=== PATIENT | male | born 1970 | race Caucasian/White ===

== ENCOUNTER 2019-01-06 09:13 | Outpatient (CLI) | payer MEDICAID, SELFPAY ==
[2019-01-06 10:24] LABS: Anion Gap 8.6 mmol/L (3-11); BUN 15 mg/dL (7-18); CO2 29.4 mmol/L (21.0-32.0); CREATININE 0.69 mg/dL (0.70-1.30); Calcium 8.8 mg/dL (8.5-10.1); Calculated LDL 91 mg/dL; Chloride 103 mmol/L (98-107); Cholesterol 154 mg/dL (50-200); Glucose 91 mg/dL (70-100); HDL Cholesterol 34 mg/dL (40-60); Potassium 4.5 mmol/L (3.5-5.1); Sodium 141 mmol/L (136-145); Triglyceride 145 mg/dL (30-150)
== END 2019-01-06 09:33 ==
PROVIDERS: PCP Nurse Practitioner Family; Visit Provider Nurse Practitioner Family
DX: E11.9 Type 2 diabetes mellitus without complications (principal); Z00.00 Encounter for general adult medical examination without abnormal findings
CPT/HCPCS: 36415; 80048; 80061

== ENCOUNTER 2019-02-04 17:00 | Observation (INO) | payer MEDICAID, SELFPAY ==
[2019-02-04] VITALS (133 sets, daily range): BP systolic 102–190; BP diastolic 55–153; PULSE 90–204; RESP 7–44; TEMP 36.3–37.2; O2SAT 91–99
--- NOTE | 2019-02-04 17:36 | W.ED.GENAD ---
Discharge Plan Disposition Patient Disposition: [facility] INPATIENT Condition: Critical Discharge Details Chief Complaint: Palpitatns Clinical Impression: Atrial fibrillation with RVR, Multiple thyroid nodules Primary Care Provider: Rayne Worrell ED Provider: Russell Hernandez Home Meds and New Rx's Prescriptions: No Action metformin 500 MG tablet 500 mg PO DAILY RF: 0 glipizide 5 mg Tablet 5 mg PO DAILY RF: 0 Medical Decision Making 17:40 --48-year-old male here with chief complaint of palpitations that started approximately 1 hour prior to arrival. ECG reviewed and interpreted by me: Atrial fibrillation 132 bpm, normal axis, no STEMI. Patient has no known history of atrial fibrillation. Patient denies chest pain or shortness of breath. Patient saturating well in no respiratory distress. Plan to proceed to rate control with Cardizem IV. I will check TSH and electrolytes. 18:30 -- Patient did not respond to diltiazem 15mg IV. Will repeat push and administer 20mg IV. 19:14 --patient did respond to second dose of diltiazem and heart rate improved to 110s. Plan to start diltiazem infusion. Chest x-ray was interpreted by radiologist prominence of the central pulmonary vasculature. Consider pulmonary embolism. Plan to proceed to CT of the chest. Labs reviewed and nondiagnostic. 20:08 --CT of the chest interpreted by radiology: No evidence for pulmonary embolism. 0.3 cm nodule right lateral lung. Multiple thyroid nodules and calcifications. Recommend ultrasound for further evaluation. Patient now on Cardizem infusion. I called and spoke with Dr. Duran, hospitalist, who will admit the patient. Care transition to Dr. Duran. HPI General Mode of arrival: ambulatory. Date/Time Provider Initiated Documentation: 02/04/19 17:07. Limitations to Documentation: no limitations. Information obtained by: patient. HPI Narrative: 48-year-old male with history of nonindependent diabetes, morbid obesity, here with chief complaint of palpitations. Patient notes palpitations started 1 hour ago. Palpitations started while he was sitting watching TV. Prior to onset he was feeling well. After onset he noted to feel little bit dizzy when he was up and walking around. He has no associated chest pain. Related Data Home Medications Medication Instructions Recorded Confirmed metformin 500 mg PO DAILY 06/19/16 02/04/19 glipizide 5 mg PO DAILY 02/04/19 02/04/19 Allergies Allergy/AdvReac Type Severity Reaction Status Date / Time No Known Allergies Allergy Unverified 02/04/19 17:15 General Stated Complaint: Palpitatns VARGHESE: 2 Review of Systems All systems reviewed & are unremarkable except as noted in HPI and below Constitutional Constitutional: Denies fever(s) ENT Ears, Nose, Mouth, and Throat: Reports dizziness Cardiovascular Cardiovascular: Reports palpitations and Denies dyspnea Respiratory Respiratory: Denies dyspnea Neurologic Neurologic: Reports dizziness Endocrine Endocrine: Reports palpitations [facility] Social History Smoking/Tobacco Use Status: Never Alcohol Intake: never Drug use: Never Substance use type: does not use Do you feel safe at home: Yes Do you feel safe in your relationship?: Yes Exam Const General: cooperative and no acute distress HENMT Mouth: moist mucous membranes Eyes Conjunctivae: normal conjunctivae Sclera: normal sclerae Neck Neck: trachea midline and supple Resp Auscultation: clear to auscultation bilaterally, no rales, no rhonchi and no wheezes Cardio Jugular venous pressure: no JVD Rate: tachycardic Rhythm: abnormal rhythm irregularly irregular GI Palpation: soft, not firm, no guarding, no masses, not rigid and nontender Skin General skin exam: no rashes or lesions noted Neuro General: alert, awake, oriented x3 and tone normal Extrem General: no edema Psych Appearance: grossly normal Mental Status: mental status grossly normal Speech and Movement: speech and movement normal Course Vital Signs Vital signs: Vital Signs Pulse 88 02/04/19 17:08 Respiratory Rate 31 H 02/04/19 17:08 Blood Pressure 148/99 H 02/04/19 17:08 Pulse Oximetry 95 02/04/19 17:08 Temperature 36.3 C L 02/04/19 17:14 Temperature Source Temporal Artery Scan 02/04/19 17:11 Pulse 70 02/04/19 17:31 Respiratory Rate 28 H 02/04/19 17:31 Respiratory Effort Non-Labored 02/04/19 17:11 Blood Pressure 169/88 H 02/04/19 17:31 Blood Pressure Position Sitting 02/04/19 17:11 Pulse Oximetry 92 L 02/04/19 17:31 Oxygen Delivery Method Room Air 02/04/19 17:11 Oxygen Flow Rate 0 02/04/19 17:11 Pain Level 0 02/04/19 17:18 Critical Care Time Critical Care Time Critical Care Time: Yes Total Critical Care Time: 45 Attestation: I spent greater than 45 minutes addressing this patient's immediate life threats
--- NOTE | 2019-02-04 17:45 | DI.RAD_ITS ---
EXAM: XR PORTABLE CHEST AP INDICATION: new afib, palpitations. COMPARISON: CHEST 2 VIEWS PA,LAT from 04/17/2012 TECHNIQUE: 2D digital imaging was performed. FINDINGS: The heart size is within normal limits. There is tortuosity of the thoracic aorta. The lungs appear clear. No effusions or pneumothoraces are identified. The bones appear intact. IMPRESSION: No acute pulmonary process.
[2019-02-04 17:47] LABS: Abs Immature Grans 0.03 k/cumm (0.0-0.09); Absolute Basophil Count 0.07 k/cumm (0.0-0.2); Absolute Eosinophil Count 0.26 k/cumm (0.0-0.7); Absolute Lymphocyte Count 2.95 k/cumm (1.2-3.4); Absolute Monocyte Count 0.91 k/cumm (0.11-0.7); Basophils % 0.7; Eosinophils % 2.6; HCT 50.9 % (40.0-50.0); Immature Grans % 0.3; Lymphocytes % 29.7; Mean Corp. HGB Concentration 33.4 g/dL (32.0-36.0); Mean Corpuscular Hemoglobin 28.9 pg (27.0-33.0); Mean Corpuscular Volume 86.6 fL (80-95); Mean Platelet Volume 10.3 fL (8.0-11.0); Monocytes % 9.2; Neutrophils % 57.5; Platelet Count 297 x1000/uL (130-400); RBC 5.88 m/cumm (4.50-6.00); RBC Distribution Width 14.3 % (11.8-14.1); White Blood Cell Count 9.92 k/cumm (4.4-10.8)
[2019-02-04] MEDS: dilTIAZem 25 MG/5 ML VIAL 15 MG IVP (17:56)
[2019-02-04] MEDS: Normal Saline 1,000 ML 150 ML IV (17:57)
[2019-02-04 18:08] LABS: ALT 23 U/L (16-63); AST 15 U/L (15-37); Albumin 3.4 g/dL (3.4-5.0); Alkaline Phosphatase 84 U/L (46-116); Anion Gap 8.7 mmol/L (3-11); BUN 12 mg/dL (7-18); Bilirubin, Total 0.3 mg/dL (0.2-1.0); CO2 27.3 mmol/L (21.0-32.0); CREATININE 0.69 mg/dL (0.70-1.30); Calcium 9.1 mg/dL (8.5-10.1); Chloride 103 mmol/L (98-107); Glucose 125 mg/dL (70-100); Sodium 139 mmol/L (136-145); TSH (W/Ref FT4) 2.26 uIU/mL (0.36-3.74); Total Protein 8.5 g/dL (6.4-8.2)
[2019-02-04 18:10] LABS: Troponin I < 0.05 ng/mL (0.00-0.06)
[2019-02-04] MEDS: dilTIAZem 25 MG/5 ML VIAL 20 MG IVP (18:43)
--- NOTE | 2019-02-04 18:43 | DI.VRAD_ITS ---
PROCEDURE INFORMATION: Exam: XR Chest, 1 View Exam date and time: 02/04/2019 6:36 PM Clinical history: 48 years old, male; Other: New afib, palpitations TECHNIQUE: Imaging protocol: XR of the chest Views: 1 view. COMPARISON: CR CHEST 2 VIEWS PA,LAT 17/04/2012 16:13 FINDINGS: Lungs: There is slight prominence of the central pulmonary vessels. No consolidation. Pleural space: Unremarkable. No pleural effusion. No pneumothorax. Heart/Mediastinum: Heart and mediastinum are unchanged. Bones/joints: EKG wires overlie the chest. There is degenerative scoliotic changes of the thoracic spine. IMPRESSION: Prominence of the central pulmonary vasculature. Dictated and Authenticated by: Roma Choi MD. Ordering:JOHANN Wells MD
[2019-02-04] MEDS: Normal Saline 1,000 ML 1000 ML IV (18:44)
[2019-02-04] MEDS: Omnipaque 350 MG/ML 100 ML BTL IJ (19:25)
[2019-02-04] MEDS: Omnipaque 350 MG/ML 50 ML BTL IJ (19:26)
--- NOTE | 2019-02-04 19:29 | DI.CT_ITS ---
EXAM: CT CHEST PE CTA CLINICAL HISTORY: tachy, new afib, prominence of central pulm vascul TECHNIQUE: Axial CT angiography was performed with multi-slice acquisition and multi-planar and/or 3 D reconstructions. COMPARISON: XR PORTABLE CHEST AP from 02/04/2019 FINDINGS: There is no evidence of a pulmonary embolus. The thoracic aorta is intact. No evidence of an aneurysm or dissection is present. Heart size is within normal limits. No significant pericardial effusion is present. No evidence of r ight ventricular dysfunction is present. No significant thoracic adenopathy, pleural effusion or pneumothorax is present. No focal consolidating infiltrates are present. There is a 3 mm nodule in the right lateral lung. The tracheobronchial tree is unremarkable. There are thyroid nodules present. Calcifications are seen in the left lobe of the thyroid gland. A nonemergent thyroid ultrasound should be considered. There are degenerative changes seen in the thoracic spine. There is exaggeration of the thoracic kyp hosis. There is a right convex thoracic scoliosis. IMPRESSION: 1. No evidence of a pulmonary embolus, thoracic aortic dissection or aneurysm 2. 3 mm right pulmonary nodule. Follow-up is recommended. Correlation with the patient's past medic al history including smoking is recommended. 6-12 month follow-up CT scan of the chest is recommende d for re-evaluation. 3. Thyroid nodules. Nonemergent thyroid ultrasound should be considered.
[2019-02-04] MEDS: dilTIAZem 125 MG in Normal Saline 100 ML IV (19:57)
--- NOTE | 2019-02-04 19:58 | DI.VRAD_ITS ---
PROCEDURE INFORMATION: Exam: CT Angiography Chest With Contrast Exam date and time: 02/04/2019 7:13 PM Clinical history: 48 years old, male; Other: Tachy, new afib, prominence of central pulm vascul TECHNIQUE: Imaging protocol: Computed tomographic angiography of the chest with intravenous contrast. 3D rendering: MIP reconstructed images were created and reviewed. Radiation optimization: All CT scans at this facility use at least one of these dose optimization techniques: automated exposure control; mA and/or kV adjustment per patient size (includes targeted exams where dose is matched to clinical indication); or iterative reconstruction. Contrast material: [id number]; Contrast volume: 125 ml; Contrast route: IV 20G RAC; COMPARISON: XR PORTABLE CHEST AP 11/07/2018 18:25 FINDINGS: Pulmonary arteries: No evidence for pulmonary embolus. Aorta: Unremarkable. No aortic aneurysm. No aortic dissection. Thyroid: Bilateral thyroid nodules. Left thyroid calcification. Recommend ultrasound for further evaluation. Lungs: No focal consolidation. 0.3 cm right lateral lung nodule series 7 image 67. Pleural space: Unremarkable. No pneumothorax. No pleural effusion. Heart: Cardiomegaly. Coronary artery disease. Lymph nodes: Unremarkable. No enlarged lymph nodes. Bones/joints: Multilevel degenerative changes of the thoracic spine. Kyphosis and scoliosis of the thoracic spine. Soft tissues: Unremarkable. IMPRESSION: 1. No evidence for pulmonary embolus. 2. 0.3 cm nodule right lateral lung series 7 image 67. 3. Multiple thyroid nodules and calcifications. Recommend ultrasound for further evaluation. Dictated and Authenticated by: Roma Choi MD. Ordering:JOHANN Wells MD
--- NOTE | 2019-02-04 20:05 | NUR.NOTE ---
Nursing NoteCare assumed of patient, report recieved, Dr. Duran here to evaluate and write further orders for admission. Pt states comfortable at this time. No needs, awaiting further orders.
[2019-02-04 20:35] LABS: Troponin I < 0.05 ng/mL (0.00-0.06)
--- NOTE | 2019-02-04 20:37 | HPE_ITS ---
Date of service: 02/04/19 Time of Service: 20:37 Assessment and Plan Assessment and plan (1) Atrial fibrillation: Status: Chronic Assessment and plan: A-fib, new onset. No precipitant apparent. Tolerating so no need for emergent attempt at conversion. Rate not responding at present to cardizem, will try Verapamil and then beta cory if needed. If fails to revert overnight would proceed with cardioversion, either Ibutilide or electrical.Will provisionally begin anticoagulation with Eliquis, unclear if will need termite control representative. Will also check tox screen and obtain ECHO. History of Present Illness History of Present Illness Chief Complaint: palpitations Narrative: 48 male comes in with sense of palpitation tis evening. Rapid AF noted; work up shows no electrolyte abnormalities, normal TSH. Denies EtOH or street drrug use. Rate has been as high as 200 when acttive, otherwise approximately 14-15. has rreceived Cardizem 35 mg IV in divided doses with temporary decrease to 110's, now on 10 mg qtt with rate 130s-140s. No CP, SOB, says the intensity of the palpitation is less but still present. Review of Systems All systems reviewed & are unremarkable except as noted in HPI and below PFSH Social History Smoking/Tobacco Use Status: Never Alcohol Intake: never Drug use: Never Substance use type: does not use Do you feel safe at home: Yes Do you feel safe in your relationship?: Yes Meds Home Medications and Allergies Home Medications Medication Instructions Recorded Confirmed Type metformin 500 mg PO DAILY 06/19/16 02/04/19 History glipizide 5 mg PO DAILY 02/04/19 02/04/19 History Allergies Allergy/AdvReac Type Severity Reaction Status Date / Time No Known Allergies Allergy Unverified 02/04/19 17:15 Exam Narrative Exam Narrative: 151/83, 143, 18, 37.2. HEENT AT/NC; neck supple; lungs clear; heart tachy irr/irr; abdomen soft NT; extremities trace edema, pulse 2+/= Results Labs Result diagrams: 02/04/19 17:11 02/04/19 17:11 Labs: Laboratory Results - last 24 hr 02/04/19 02/04/19 02/04/19 17:11 17:11 20:13 WBC 9.92 RBC 5.88 Hgb 17.0 Hct 50.9 H MCV 86.6 MCH 28.9 MCHC 33.4 RDW 14.3 H Plt Count 297 MPV 10.3 Immature Gran % 0.3 Neutrophils % 57.5 Lymphocytes % 29.7 Monocytes % 9.2 Eosinophils % 2.6 Basophils % 0.7 Absolute Neutrophils 5.70 Absolute Lymphocytes 2.95 Absolute Monocytes 0.91 H Absolute Eosinophils 0.26 Absolute Basophils 0.07 Sodium 139 Potassium 4.0 Chloride 103 Carbon Dioxide 27.3 Anion Gap 8.7 BUN 12 Creatinine 0.69 L Estimated GFR/1.73 m2 >= 60.00 Glucose 125 H Calcium 9.1 Magnesium 2.0 Total Bilirubin 0.3 AST 15 ALT 23 Alkaline Phosphatase 84 Troponin I < 0.05 < 0.05 Total Protein 8.5 H Albumin 3.4 TSH 2.26 Last Vital Signs Temp 37.2 C 02/04/19 20:05 Pulse 143 H 02/04/19 20:05 Resp 18 02/04/19 20:05 BP 151/83 H 02/04/19 20:05 Pulse Ox 96 02/04/19 20:05
[2019-02-04] MEDS: Verapamil 5 MG/2 ML VIAL IVP (20:40)
[2019-02-04] MEDS: Verapamil 5 MG/2 ML VIAL (21:00)
[2019-02-04 22:05] LABS: *AMPHETAMINES SCREEN URINE Negative (Negative); *BARBITURATES SCREEN URINE Negative (Negative); *BENZODIAZEPINES SCREEN URINE Negative (Negative); Cannabinoids THC Negative (Negative); Cocaine Screen,Urine Negative (Negative); METHADONE URINE SCREEN Negative (Negative); OPIATES URINE SCREEN Negative (Negative)
[2019-02-04 22:20] LABS: Tricyclic Antidepressants Negative (Negative)
[2019-02-04] MEDS: Verapamil 80 MG TAB PO (22:22)
[2019-02-05] VITALS (12 sets, daily range): BP systolic 122–151; BP diastolic 63–79; PULSE 64–123; RESP 18–29; TEMP 36.4–36.9; O2SAT 92–95
[2019-02-05] MEDS: Verapamil 80 MG TAB PO ×3 (06:40→21:56)
[2019-02-05] MEDS: metFORMIN 500 MG TAB PO (08:12)
[2019-02-05] MEDS: Apixaban 5 MG TAB PO ×2 (08:13→19:16)
[2019-02-05] MEDS: glipiZIDE 5 MG TAB PO (08:13)
--- NOTE | 2019-02-05 10:02 | PHARADMIT ---
Admission Pharmacy Clinical Review AATRIAL FIBRILLATION Code Status Full Code Current Weight Wgt-174.2 kg Renally Cleared and Narrow Therapeutic Index Meds CrCl~ 87 mL/min Meds-OK QTc Value / Action Taken QTc-433 NA BP Control, Fever BP- 124/80 Tmax-36.5C Electrolytes reviewed Na- 139 K+4.3 Mag-2.0 DVT Prophylaxis Eliquis Opiate Usage / Scheduled Bowel Regimen Ordered No No Plt/SCr for Heparin / Enoxaparin Plts-297 SCr-0.69 INR for Warfarin NA H/H stable, WBC/Bands H&H- 17.0/50.9 WBC-9.92 Antibiotic appropriateness NONE Cultures and Sensitivities NONE Surgical ABX d/c within 24 hr NA DM control / Insulin Dosing BG-125 Glipizide, Metformin Heart Failure (Check EF%) (ELVIRA's, B-Block, Diuretics) Verapamil, Diltiazem drip IV to PO Switch No Home Meds Reviewed Yes Home Meds Not Ordered Percocet Comments
[2019-02-05] MEDS: dilTIAZem 125 MG in Normal Saline 100 ML IV (10:25)
[2019-02-05 12:06] LABS: Anion Gap 9.7 mmol/L (3-11); BUN 13 mg/dL (7-18); CO2 24.3 mmol/L (21.0-32.0); CREATININE 0.65 mg/dL (0.70-1.30); Calcium 9.2 mg/dL (8.5-10.1); Chloride 106 mmol/L (98-107); Glucose 97 mg/dL (70-100); Sodium 140 mmol/L (136-145); Troponin I < 0.05 ng/mL (0.00-0.06)
--- NOTE | 2019-02-05 13:16 | INITIAL_ITS ---
Care Management Initial Assess REASON FOR HOSPITALIZATION:: A-FIB PAST MEDICAL HISTORY/PAST SURGICAL HISTORY:: Medical: Diabetes, Obesity. Surgical: No history provided PREVIOUS FUNCTIONAL STATUS/SOCIAL/FAMILY SUPPORTS:: Lives with his parents at their home in [facility]. Gilbert does not currently have a job. Spends his day doing chores around the house and watching TV. Family, including his sister, are supportive. CURRENT FUNCTIONAL STATUS:: Gilbert is lying in bed watching TV. Alert and talkative. Shared that his heart went back to normal but the doctor needs to check a few other tests so he will be her a bit longer than he had hoped. ADVANCE DIRECTIVES:: None on file Has patient been provided with information about the portal?: Yes Did the patient sign up for the portal?: No CODE STATUS:: Full Code INSURANCE COVERAGE / FINANCIAL ISSUES:: [place] Medicaid CURRENT HOME/COMMUNITY SERVICES/EQUIPMENT:: None at this time PRIMARY CARE PHYSICIAN:: [facility] - Rayne Worrell NP POTENTIAL DISCHARGE NEEDS:: None identified at this time PATIENT/FAMILY EDUCATION NEEDS:: Discharge instructions ANTICIPATED BARRIERS TO DISCHARGE:: None identified TRANSPORTATION:: Family PLAN:: Gilbert will retrn home when medically cleared for discharge. No servces needed at this time. Family will transport by car.
--- NOTE | 2019-02-05 14:00 | PGE_ITS ---
Date of Service Date of service: 02/05/19 Time of Service: 14:00 Assessment and Plan Assessment and plan (1) Atrial fibrillation: Status: Chronic Assessment and plan: Converted to sinus rhythm. TSH, electrolytes, tox screen all checked and negative. Afib may be on the basis of untreated and undiagnosed underlying BRENNA. - Recommend outpatient Sleep Study, treatment if BRENNA confirmed. - Continue short-acting Verapamil, discontinue Dilt gtt. - [id number] score of 1 (DM) at minimum, with unknown ECHO results. Patient was initiated on AC with Apixaban. - Continue to monitor on telemetry. (2) Abnormal EKG: Status: Acute Assessment and plan: Evidence of TWave inversions on ECG following conversion to sinus rhythm - Serial Troponins negative and patient remains asymptomatic, but ECG findings are new compared to prior tracing from 2013 as well as initial tracing from time of admission. - Discussed with cardiology at [facility] regarding need for inpatient stress testing vs. outpatient work-up. Sales Incentive Analyst recommended outpatient work-up, with ECG findings likely on the basis of repolarization abnormalities following Afib - also without signs of PE on CTA of the chest. Plan will be to continue to trend cardiac biomarkers, monitor on telemetry, and repeat ECG in the morning, and if resolved findings or continued absence of troponin spill plan for ECHO and stress testing as outpatient. (3) Diabetes mellitus: Status: Chronic Assessment and plan: Continue daily Sulfonylurea, but hold Metformin as inpatient, especially given contrast study at time of admission - will monitor renal function carefully. Monitor blood sugar. (4) DVT prophylaxis: Status: Acute Assessment and plan: On active anticoagulation as above. Initiate PPI for GI Prophylaxis as well. Subjective Subjective Interval history since last seen: 48 year old man with a prior history of DM and obesity, admitted from [facility] Emergency Department with a diagnosis of new onset AFib. Mr. Ryan has a past Medical History significant for Obesity and Non-insulin dependent DM. He also very likely suffers from underlying BRENNA, not officially diagnosed. The patient presented to the ED with complaints of palpitations, found to be in Afib with RVR. Initial work-up was fairly unremarkable with an essentially normal CBC, CMP, Magnesium, Urine Tox screen, and TSH. His initial ECG showed Afib but without ischemic changes, and his troponin was negative. CXR showed slight prominence of the central pulmonary vessels, with CTA of the chest showing no evidence of PE. Incidentally noted were a 0.3 cm nodule of the right lung, as well as multiple thyroid nodules. He was initiated on a Cardizem drip and referred for admission. Shortly after admission Mr. Ryan converted to sinus rhythm. His serial Troponins remained negative. However, his ECG following conversion showed T-Wave Inversions across II, III, and AVF which were present on repeat check. This is a new finding in comparison to both his admission tracing as well as ECG from 2013. He remains asymptomatic. No other overnight events reported. Exam Narrative Exam Narrative: General: Patient appears comfortable, AAOX3, NAD Neck: Supple CV: Regular, nontachycardic, S1S2, No rubs or murmurs. Distant heart sounds due to body habitus. Pulmonary: Clear to auscultation bilaterally, no crackles, wheezing, or rhonchi Abdomen: + Bowel Sounds, soft, nontender, nondistended, obese contour. Vascular: Mild non-pitting lower extremity edema Psych: Normal mood and affect. Objective Objective Clinical Data: Abnormal lab results 02/04/19 02/04/19 02/05/19 Range/Units 17:11 17:11 11:15 Hct 50.9 H (40.0-50.0) % RDW 14.3 H (11.8-14.1) % Absolute Monocytes 0.91 H (0.11-0.7) k/cumm Creatinine 0.69 L 0.65 L (0.70-1.30) mg/dL Glucose 125 H (70-100) mg/dL Total Protein 8.5 H (6.4-8.2) g/dL Vital Signs Temperature 36.4 C L 02/05/19 08:00 Temperature Source Temporal Artery Scan 02/05/19 08:00 Pulse 64 02/05/19 08:04 Pulse 67 02/05/19 08:04 Respiratory Rate 18 02/05/19 08:04 Respiratory Effort Non-Labored 02/05/19 08:00 Respiratory Depth Normal 02/05/19 08:00 Respiratory Pattern Normal 02/05/19 08:00 Blood Pressure 122/78 02/05/19 08:04 Blood Pressure Mean 89 02/05/19 08:04 Blood Pressure Position Supine 02/05/19 08:00 Pulse Oximetry 92 L 02/05/19 08:04 Oxygen Delivery Method Room Air 02/05/19 08:00 Oxygen Flow Rate 0 02/05/19 08:00 Pain Level 0 02/05/19 08:00 Comment 02/04/19 18:26 Intake & Output 02/04/19 02/05/19 02/05/19 23:59 11:59 23:59 Intake Total 1242.583 / 1242.583 622.417 / 622.417 Balance 1242.583 / 1242.583 622.417 / 622.417 Weight 173.8 kg 174.2 kg Intake: IV 1002.583 / 1002.583 122.417 / 122.417 Oral 240 / 240 500 / 500 Laboratory Results WBC 9.92 k/cumm (4.4-10.8) 02/04/19 17:11 RBC 5.88 m/cumm (4.50-6.00) 02/04/19 17:11 Hgb 17.0 g/dL (13.5-17.5) 02/04/19 17:11 Hct 50.9 % (40.0-50.0) H 02/04/19 17:11 MCV 86.6 fL (80-95) 02/04/19 17:11 MCH 28.9 pg (27.0-33.0) 02/04/19 17:11 MCHC 33.4 g/dL (32.0-36.0) 02/04/19 17:11 RDW 14.3 % (11.8-14.1) H 02/04/19 17:11 Plt Count 297 x1000/uL (130-400) 02/04/19 17:11 MPV 10.3 fL (8.0-11.0) 02/04/19 17:11 Immature Gran % 0.3 02/04/19 17:11 Neutrophils % 57.5 02/04/19 17:11 Lymphocytes % 29.7 02/04/19 17:11 Monocytes % 9.2 02/04/19 17:11 Eosinophils % 2.6 02/04/19 17:11 Basophils % 0.7 02/04/19 17:11 Absolute Neutrophils 5.70 k/cumm (1.2-6.7) 02/04/19 17:11 Absolute Lymphocytes 2.95 k/cumm (1.2-3.4) 02/04/19 17:11 Absolute Monocytes 0.91 k/cumm (0.11-0.7) H 02/04/19 17:11 Absolute Eosinophils 0.26 k/cumm (0.0-0.7) 02/04/19 17:11 Absolute Basophils 0.07 k/cumm (0.0-0.2) 02/04/19 17:11 Sodium 140 mmol/L (136-145) 02/05/19 11:15 Potassium 4.0 mmol/L (3.5-5.1) 02/05/19 11:15 Chloride 106 mmol/L (98-107) 02/05/19 11:15 Carbon Dioxide 24.3 mmol/L (21.0-32.0) 02/05/19 11:15 Anion Gap 9.7 mmol/L (3-11) 02/05/19 11:15 BUN 13 mg/dL (7-18) 02/05/19 11:15 Creatinine 0.65 mg/dL (0.70-1.30) L 02/05/19 11:15 Estimated GFR/1.73 m2 >= 60.00 (mL/min/1.73m2) 02/05/19 11:15 Glucose 97 mg/dL (70-100) 02/05/19 11:15 Calcium 9.2 mg/dL (8.5-10.1) 02/05/19 11:15 Magnesium 2.0 mg/dL (1.8-2.4) 02/05/19 11:15 Total Bilirubin 0.3 mg/dL (0.2-1.0) 02/04/19 17:11 AST 15 U/L (15-37) 02/04/19 17:11 ALT 23 U/L (16-63) 02/04/19 17:11 Alkaline Phosphatase 84 U/L (46-116) 02/04/19 17:11 Troponin I < 0.05 ng/mL (0.00-0.06) 02/05/19 11:15 Total Protein 8.5 g/dL (6.4-8.2) H 02/04/19 17:11 Albumin 3.4 g/dL (3.4-5.0) 02/04/19 17:11 TSH 2.26 uIU/mL (0.36-3.74) 02/04/19 17:11 Urine Opiates Screen Negative (Negative) 02/04/19 21:36 Urine Methadone Screen Negative (Negative) 02/04/19 21:36 Ur Barbiturates Screen Negative (Negative) 02/04/19 21:36 Ur Tricyclics Screen Negative (Negative) 02/04/19 21:36 Ur Amphetamines Screen Negative (Negative) 02/04/19 21:36 U Benzodiazepines Scrn Negative (Negative) 02/04/19 21:36 Urine Cocaine Screen Negative (Negative) 02/04/19 21:36 Ur THC Screen Negative (Negative) 02/04/19 21:36
[2019-02-05 15:33] LABS: Troponin I < 0.05 ng/mL (0.00-0.06)
--- NOTE | 2019-02-05 17:00 | NUR.NOTE ---
Nursing Note: Pt to MS floor from ICU at 1502. Report received from MARKETING COMMUNICATIONS COORDINATOR Argelia and pt transported via wheelchair to room. Pt able to stand and pivot from wheelchair to bed. VSS, A&Ox3. Parents at bedside. Pt oriented to MS floor, call fairchild, TV, etc. Call fairchild within reach. RN will continue to monitor.
[2019-02-05] MEDS: Nystatin POWDER 15 GM JAR TP (21:56)
[2019-02-06 00:15] VITALS: BP 126/66; PULSE 80; RESP 22; TEMP 36.4; O2SAT 96
[2019-02-06 00:31] VITALS: PULSE 73
[2019-02-06] MEDS: Verapamil 80 MG TAB PO ×2 (05:56→13:26)
[2019-02-06 07:13] VITALS: PULSE 80
[2019-02-06 07:37] LABS: Abs Immature Grans 0.02 k/cumm (0.0-0.09); Absolute Basophil Count 0.06 k/cumm (0.0-0.2); Absolute Eosinophil Count 0.13 k/cumm (0.0-0.7); Absolute Lymphocyte Count 2.32 k/cumm (1.2-3.4); Absolute Monocyte Count 0.94 k/cumm (0.11-0.7); Absolute Neutrophil Count 6.24 k/cumm (1.2-6.7); Basophils % 0.6; Eosinophils % 1.3; HCT 47.8 % (40.0-50.0); HGB 15.8 g/dL (13.5-17.5); Immature Grans % 0.2; Lymphocytes % 23.9; Mean Corp. HGB Concentration 33.1 g/dL (32.0-36.0); Mean Corpuscular Hemoglobin 28.9 pg (27.0-33.0); Mean Corpuscular Volume 87.5 fL (80-95); Monocytes % 9.7; Neutrophils % 64.3; Platelet Count 327 x1000/uL (130-400); RBC 5.46 m/cumm (4.50-6.00); RBC Distribution Width 14.4 % (11.8-14.1); White Blood Cell Count 9.71 k/cumm (4.4-10.8)
[2019-02-06] MEDS: Apixaban 5 MG TAB PO (07:48)
[2019-02-06] MEDS: Pantoprazole 40 MG TABCR PO (07:48)
[2019-02-06] MEDS: Nystatin POWDER 15 GM JAR TP ×2 (07:48→13:26)
[2019-02-06] MEDS: glipiZIDE 5 MG TAB PO (07:48)
[2019-02-06 07:52] LABS: Anion Gap 8.5 mmol/L (3-11); BUN 16 mg/dL (7-18); CO2 25.5 mmol/L (21.0-32.0); Calcium 8.9 mg/dL (8.5-10.1); Chloride 104 mmol/L (98-107); Glucose 105 mg/dL (70-100); Magnesium 1.8 mg/dL (1.8-2.4); Potassium 3.9 mmol/L (3.5-5.1); Sodium 138 mmol/L (136-145)
[2019-02-06 07:53] LABS: Troponin I < 0.05 ng/mL (0.00-0.06)
[2019-02-06 08:41] VITALS: BP 143/91; PULSE 74; RESP 20; TEMP 36.4; O2SAT 96
[2019-02-06] MEDS: Potassium Chloride 10 MEQ TABCR PO (10:48)
[2019-02-06] MEDS: Magnesium Oxide 400 MG TAB 800 MG PO (10:48)
--- NOTE | 2019-02-06 12:37 | W.PM.DS.N ---
Date of service: 02/06/19 Time of Service: 12:37 DS: Diagnosis Discharge Diagnosis (1) Atrial fibrillation: Status: Chronic (2) Abnormal EKG: Status: Acute Discharge Plan Disposition Patient Disposition: HOME Condition: Stable Discharge Details Chief Complaint: Palpitatns Clinical Impression: Atrial fibrillation with RVR, Multiple thyroid nodules Reason For Visit: AFIB Admit Date/Time: 02/04/19 20:52 Admit Provider: Praful Duran Attending Provider: Praful Duran Primary Care Provider: Rayne Worrell ED Provider: Russell Hernandez Hospital Course Hospital Course: Chief Complaint: Palpitations HPI: 48 year old man with a prior history of DM and obesity, admitted from [facility] Emergency Department on 02/04 with a diagnosis of new onset AFib. Mr. Ryan has a past Medical History significant for Obesity and Non-insulin dependent DM. He also likely suffers from underlying BRENNA, not officially diagnosed. The patient presented to the ED with complaints of palpitations, found to be in Afib with RVR. Initial work-up was fairly unremarkable with an essentially normal CBC, CMP, Magnesium, Urine Tox screen, and TSH. His initial ECG showed Afib but without ischemic changes, and his troponin was negative. CXR showed slight prominence of the central pulmonary vessels, with subsequent CTA of the chest showing no evidence of PE. Incidentally noted was a 0.3 cm nodule of the right lung, as well as multiple thyroid nodules. He was initiated on a Cardizem drip and referred for admission. Shortly after admission Mr. Ryan converted to sinus rhythm. The cardizem drip was eventually discontinued, and he was maintained on short-acting Verapamil. His serial Troponins remained negative. However, his ECG following conversion showed T-Wave Inversions across II, III, and AVF which were present on repeat check. This is a new finding in comparison to both his admission tracing as well as ECG from 2013, deemed likely due to repolarization abnormalities following conversion back to sinus rhythm - repeat ECG this morning shows normalization of T-waves inferiorly. He also remains asymptomatic, and continued serial cardiac biomarkers remained undetectable. No other overnight events reported. Hospital Course: (1) Atrial fibrillation: New diagnosis. Converted to sinus rhythm. TSH, electrolytes, tox screen all checked and negative. Afib may be on the basis of untreated and undiagnosed underlying BRENNA. - Recommend outpatient Sleep Study, treatment if BRENNA confirmed. - Continue short-acting Verapamil and consider change to long-acting formulation as outpatient. - [id number] score of 1 (DM) at minimum, with unknown ECHO results. Patient was initiated on AC with Apixaban by admitting provider. - Will ensure Holter monitor at time of discharge. Will recommend follow-up ECHO as outpatient, and discussion with PCP regarding change to once daily aspirin vs. continuation of anticoagulation long-term. (2) Abnormal EKG: Evidence of TWave inversions on ECG following conversion to sinus rhythm - Serial Troponins negative and patient remains asymptomatic, but ECG findings are new compared to prior tracing from 2013 as well as initial tracing from time of admission. - Discussed with cardiology at [facility] regarding need for inpatient stress testing vs. outpatient work-up. Project Inspector recommended outpatient work-up, with ECG findings likely on the basis of repolarization abnormalities acutely following conversion from Afib - also without signs of PE on CTA of the chest. Trended cardiac biomarkers, all undetectable, and continued monitoring on telemetry without any further events. Repeat ECG in the morning of discharge with normalization of findings. Will plan for ECHO and stress testing as outpatient. (3) Diabetes mellitus: Continue daily Sulfonylurea, and reinitiate Metformin as outpatient. (4) Pulmonary Nodule: Imaging at time of admission with evidence of a small, 0.3 cm right lateral lung nodule, which will need long-term follow-up. (5) Thyroid nodules: Evidence of Thyroid nodules and calcifications on admission CT. Ultrasound of the thyroid has been ordered. Home Meds and New Rx's Prescriptions: No Action metformin 500 MG tablet 500 mg PO DAILY RF: 0 glipizide 5 mg Tablet 5 mg PO DAILY RF: 0 Discharge Instructions Additional Instructions: - You are now on a blood thinner, which may be chnaged by your regular provider once the results of your heart ultrasound are available. Please be careful and understand that you have an increased risk for bleeding in case of cuts or injuries. A card for 30 day supply of this new medication is being supplied to you. - You will also be prescribed a medication to help protect your stomach from ulcers and inflammation while you are on a blood thinner. - You will have a series of tests scheduled for you, including a heart ultrasound, stress test, holter monitor, and a thyroid ultrasound. You should review these results with your primary care provider, and regarding the next steps following the results. - Please see your primary care provider in 1-2 weeks. - You need a sleep study scheduled as an outpatient as well. Activity:: No strenuous activity. Equipment/Supplies:: Holter Diet:: Low Sodium Discharge Orders Discharge Orders: Discharge Order (Routine); Ordered 02/06/19 Ordered By: Palomo Mderano Other Ambulatory Orders: US echocardiogram (Routine) Location: None Selected Ordered By: Palomo Medrano Holter Monitor (Outpt) (ONCE) Location: None Selected Ordered By: Palomo Medrano Nuclear Medicine Stress Test (Outpt) (ONCE) Timeframe: [id number] Location: None Selected Ordered By: Palomo Medrano US thyroid (Routine) Timeframe: 2 Weeks Location: None Selected Ordered By: Palomo Medrano DS: Summary Status at Discharge Functional status at discharge: independent ambulation Overall status at discharge: patient is back to baseline Mental Status: mental status grossly normal Speech and Movement: speech and movement normal Mood: congruent mood Affect: normal affect Exam Psych Mental Status: mental status grossly normal Speech and Movement: speech and movement normal Mood: congruent mood Affect: normal affect DS: Data Vitals/I&O Vitals and I&O: Vital Signs Temperature 36.4 C L 02/06/19 08:41 Temperature Source Temporal Artery Scan 02/06/19 08:41 Pulse 74 02/06/19 08:41 Pulse Rhythm Regular 02/06/19 07:30 Pulse 80 02/05/19 14:33 Respiratory Rate 20 02/06/19 08:41 Respiratory Effort 02/06/19 07:30 Respiratory Depth Normal 02/06/19 07:30 Respiratory Pattern Normal 02/06/19 07:30 Blood Pressure 143/91 H 02/06/19 08:41 Blood Pressure Mean 80 02/05/19 14:33 Blood Pressure Position Sitting 02/05/19 11:40 Pulse Oximetry 96 02/06/19 08:41 Oxygen Delivery Method Room Air 02/06/19 08:41 Oxygen Flow Rate 0 02/06/19 08:41 Pain Level 0 02/06/19 07:30 Comment 02/04/19 18:26 Intake & Output 02/05/19 02/06/19 02/06/19 23:59 11:59 23:59 Intake Total 2240.333 / 2862.750 Output Total 600 / 600 Balance 1640.333 / 2262.750 Intake: IV 1020.333 / 1142.750 Oral 1220 / 1720 Output: Urine 600 / 600 Other: Urine Color Light Yane Urine Appearance Clear Urine Odor Normal Voiding Methods Toilet Data Completed and Pending Completed studies during hospitalization [Text1]: Exam(s) 02/04/2019 PROCEDURE INFORMATION: Exam: XR Chest, 1 View Exam date and time: 02/04/2019 6:36 PM Clinical history: 48 years old, male; Other: New afib, palpitations TECHNIQUE: Imaging protocol: XR of the chest Views: 1 view. COMPARISON: CR CHEST 2 VIEWS PA,LAT 17/04/2012 16:13 FINDINGS: Lungs: There is slight prominence of the central pulmonary vessels. No consolidation. Pleural space: Unremarkable. No pleural effusion. No pneumothorax. Heart/Mediastinum: Heart and mediastinum are unchanged. Bones/joints: EKG wires overlie the chest. There is degenerative scoliotic changes of the thoracic spine. IMPRESSION: Prominence of the central pulmonary vasculature. --------- Exam(s) 02/04/2019 PROCEDURE INFORMATION: Exam: CT Angiography Chest With Contrast Exam date and time: 02/04/2019 7:13 PM Clinical history: 48 years old, male; Other: Tachy, new afib, prominence of central pulm vascul TECHNIQUE: Imaging protocol: Computed tomographic angiography of the chest with intravenous contrast. 3D rendering: MIP reconstructed images were created and reviewed. Radiation optimization: All CT scans at this facility use at least one of these dose optimization techniques: automated exposure control; mA and/or kV adjustment per patient size (includes targeted exams where dose is matched to clinical indication); or iterative reconstruction. Contrast material: [id number]; Contrast volume: 125 ml; Contrast route: IV 20G RAC; COMPARISON: XR PORTABLE CHEST AP 11/07/2018 18:25 FINDINGS: Pulmonary arteries: No evidence for pulmonary embolus. Aorta: Unremarkable. No aortic aneurysm. No aortic dissection. Thyroid: Bilateral thyroid nodules. Left thyroid calcification. Recommend ultrasound for further evaluation. Lungs: No focal consolidation. 0.3 cm right lateral lung nodule series 7 image 67. Pleural space: Unremarkable. No pneumothorax. No pleural effusion. Heart: Cardiomegaly. Coronary artery disease. Lymph nodes: Unremarkable. No enlarged lymph nodes. Bones/joints: Multilevel degenerative changes of the thoracic spine. Kyphosis and scoliosis of the thoracic spine. Soft tissues: Unremarkable. IMPRESSION: 1. No evidence for pulmonary embolus. 2. 0.3 cm nodule right lateral lung series 7 image 67. 3. Multiple thyroid nodules and calcifications. Recommend ultrasound for further evaluation. Labs on day of discharge: Labs from last 24 hours 02/06/19 02/06/19 02/05/19 06:58 06:58 14:57 WBC 9.71 RBC 5.46 Hgb 15.8 Hct 47.8 MCV 87.5 MCH 28.9 MCHC 33.1 RDW 14.4 H Plt Count 327 MPV 10.0 Immature Gran % 0.2 Neutrophils % 64.3 Lymphocytes % 23.9 Monocytes % 9.7 Eosinophils % 1.3 Basophils % 0.6 Absolute Neutrophils 6.24 Absolute Lymphocytes 2.32 Absolute Monocytes 0.94 H Absolute Eosinophils 0.13 Absolute Basophils 0.06 Sodium 138 Potassium 3.9 Chloride 104 Carbon Dioxide 25.5 Anion Gap 8.5 BUN 16 Creatinine 0.70 Estimated GFR/1.73 m2 >= 60.00 Glucose 105 H Calcium 8.9 Magnesium 1.8 Troponin I < 0.05 < 0.05 [facility] Social History Smoking/Tobacco Use Status: Never Alcohol Intake: never Drug use: Never Substance use type: does not use Do you feel safe at home: Yes Do you feel safe in your relationship?: Yes
[2019-02-06 13:43] VITALS: PULSE 88
--- NOTE | 2019-02-06 19:32 | PDOC.CMDIS ---
LACE Index Scoring Tool - Questions: Length of Stay (in days): 2 Acuity (Admit via E.D.?): Yes Comorbidities: Diabetes w/o Complication E.D. Visits: 1 - Answers: Total Score: 7 Risk of Readmission: Low Risk Care Management Discharge Reason for Hospitalization: A-FIB Discharge Plan: Gilbert will return home when medically cleared. No services needed at this time. Family will transport. Patient/Family Education Needs: Discharge instructions
== END 2019-02-06 14:20 | disposition home or self-care (01) ==
LOC: ER 21:26 → ICU 02-05 17:46 → MS 02-06 00:43 → ICU 02-23 12:46
PROVIDERS: Admitting Provider General Practice; Emergency Provider Student in an Organized Health Care Education/Training Program; PCP Nurse Practitioner Family; Visit Provider Internal Medicine
DX: I48.91 Unspecified atrial fibrillation (principal); R94.31 Abnormal electrocardiogram [ECG] [EKG]; E04.2 Nontoxic multinodular goiter; E11.9 Type 2 diabetes mellitus without complications; E66.9 Obesity, unspecified; Z79.84 Long term (current) use of oral hypoglycemic drugs; R91.1 Solitary pulmonary nodule
CPT/HCPCS: 36415; 71275; 80048; 80053; 80307; 93005; 96361; 96365; 96366; 99222; 99233; 99239; 99291; 71045; 83735; 84443; 84484; 85025; 93010; 93225; 99217; 99219; 99226; G0378; J3490; Q9967

== ENCOUNTER 2019-02-09 07:42 | Outpatient (CLI) | payer MEDICAID, SELFPAY ==
--- NOTE | 2019-02-10 08:37 | W.HOLTRPT ---
Date of service: 02/10/19 Time of Service: 08:37 Holter Monitor Report Holter Monitor Note: There is a 48-hour Holter monitor ordered for the indication of atrial fibrillation. ?Patient was in normal sinus rhythm for the entirety of the recording. ?Patient had no episodes of supraventricular tachycardia and rare premature atrial contractions. ?The patient had no episodes of ventricular tachycardia and no single ventricular ectopic beats. ?There were no episodes of atrial fibrillation, no pauses greater than 3 seconds and no evidence of high degree heart block.
== END 2019-02-09 08:02 ==
PROVIDERS: PCP Nurse Practitioner Family; Visit Provider Nurse Practitioner Family
DX: I48.91 Unspecified atrial fibrillation (principal)
CPT/HCPCS: 93226

== ENCOUNTER 2019-02-23 01:40 | Outpatient (CLI) | payer MEDICAID, SELFPAY ==
--- NOTE | 2019-02-23 13:42 | DI.US_ITS ---
EXAM: US THYROID CLINICAL HISTORY: THYROID NODULE, E04.1, EVAL THYROID NODULES SEEN DURING ER VISIT TECHNIQUE: Thyroid ultrasound was performed according to the usual protocol. COMPARISON: CHEST CT FOR PE 02/04/19 FINDINGS: Thyroid parenchyma is heterogeneous. Right thyroid lobe measures 46 x 17 x 17 millimeters and left l obe measures 47 x 19 x 21 millimeters. There are 2 discrete thyroid nodules of the left thyroid lobe , 1 in the midpole measuring about 15 millimeters in greatest diameter and the other in the lower raven e measuring about 13 millimeters in greatest diameter. These are both heterogeneous solid masses wit h no significant internal vascular flow and with areas of calcification. IMPRESSION: Two solid nodules are noted in the left thyroid lobe in a setting of probable multinodular goiter. F indings are indeterminate for malignancy although statistically these nodules are likely to be benign . Follow-up thyroid ultrasound recommended in 6 months.
== END 2019-02-23 02:00 ==
PROVIDERS: PCP Nurse Practitioner Family; Visit Provider Nurse Practitioner Family
DX: E04.1 Nontoxic single thyroid nodule (principal); E04.2 Nontoxic multinodular goiter
CPT/HCPCS: 76536

== ENCOUNTER 2019-03-03 14:33 | Outpatient (REF) | payer MEDICAID, SELFPAY ==
[2019-03-03 22:13] LABS: T4 5.3 ug/mL (4.7-13.3); TSH 2.06 uIU/mL (0.36-3.74)
[2019-03-04 21:43] LABS: T3, Total 122 ng/dL (97-169)
== END 2019-03-03 14:53 ==
LOC: NCHCN 14:33
PROVIDERS: PCP Nurse Practitioner Family; Visit Provider Nurse Practitioner Family
DX: E04.1 Nontoxic single thyroid nodule (principal); I48.91 Unspecified atrial fibrillation
CPT/HCPCS: 84436; 84443; 84480

== ENCOUNTER 2019-03-31 01:58 | Outpatient (CLI) | payer MEDICAID, SELFPAY ==
--- NOTE | 2019-03-31 13:52 | DI.US_ITS ---
APPROVED REPORT EXAM: Comprehensive 2D, Doppler, and color-flow Echocardiogram Patient Location: [facility] Labor Supervisor: Paty Rinaldi RDCS (AE) Rhythm: NSR Indications: [id number] new onset afib. r/o valve disease, cardiomyopathy Conclusion Left Ventricle : The left ventricle is normal size. Left ventricular systolic function is normal. T here is normal left ventricular wall thickness. The posterior wall thickness is severely increased. T he septum is normal. The posterior wall thickness is severely increased. The septum is normal. There is normal LV segmental wall motion. LV diastolic function is normal but there is evidence of elevated filling pressures with Valsalva. LVEF is 60-64%. Right Ventricle : Right ventricle is moderately dilated. The right ventricular systolic function waqas ears normal. Atria : The left atrium size is top normal. Right atrium is mildly dilated. Aortic Valve : Aortic valve is trileaflet. There is no aortic valvular stenosis. No aortic regurgitat ion is present. Mitral Valve : The mitral valve is normal in structure. No evidence of mitral valve stenosis. There i s no mitral valve regurgitation noted. Tricuspid Valve : The tricuspid valve is normal in structure. Mild tricuspid regurgitation. Great Vessels : The ascending aorta is mildly dilated. The ascending aorta size is dilated (3.8cm). The IVC appears small in size and collapses >50% with inspiration. Estimated RVSP is 24-27 mmHg. There is no prior echocardiogram available for comparison. Wall motion Left Ventricle The left ventricle is normal size. Left ventricular systolic function is normal. There is normal left ventricular wall thickness. The posterior wall thickness is severely increased. The septum is normal . The posterior wall thickness is severely increased. The septum is normal. There is normal LV segmen jessica wall motion. LV diastolic function is normal but there is evidence of elevated filling pressures with Valsalva. LVEF is 60-64%. Right Ventricle Right ventricle is moderately dilated. The right ventricular systolic function appears normal. Atria The left atrium size is top normal. Right atrium is mildly dilated. Aortic Valve Aortic valve is trileaflet. There is no aortic valvular stenosis. No aortic regurgitation is present. Mitral Valve The mitral valve is normal in structure. No evidence of mitral valve stenosis. There is no mitral angel ve regurgitation noted. Tricuspid Valve The tricuspid valve is normal in structure. Mild tricuspid regurgitation. Pulmonic Valve Pulmonic valve is not well visualized. Great Vessels The aortic root is normal in size. The aortic root size is normal. The ascending aorta is mildly dila oscar. The ascending aorta size is dilated (3.8cm). The IVC appears small in size and collapses >50% wi th inspiration. Estimated RVSP is 24-27 mmHg. Pericardium There is no pericardial effusion. 2D Dimensions IVSd 1.05 cm M: 0.6-1.2 LV EDV A2C 99.10 mL PWd 1.05 cm M: 0.6 - 1.2 LV EDV A4C 118.90 mL LVDd 5.40 cm M: 4.2 - 5.8 LA Volume Index A2C 24.09 mL/m2 LVDs 3.80 cm M: 2.5 - 4.0 LA Volume Index A4C 27.80 mL/m2 Aortic Root 3.25 cm M: 3.1 - 3.7 LA Volume Index Biplane 25.97 mL/m2 RA Area A4C 21.33 cm2 LA Area A4C 22.69 cm2 LVOT 2.20 cm (M/F) 1.5-2.5 LA Area A2C 21.05 cm2 Ascending Aorta 3.79 cm M: 2.6 - 3.4 EF AP4 54.92 % LVEF (Teich) 55.30 % EF AP2 62.26 % LVEF (Kilgore's) 61.45 % M: 52 - 72 EF BP 61.45 % LV Volume 78.95 mL M: 62 - 150 LV Volume Index 29.68 mL/m2 M: 34 - 74 FS 29.05 % LV Diastology E/A Ratio 1.1 MED E' 0.11 (>0.07 m/s) LV E/e MED 6.35 (<14) LAT E' 0.11 (>0.1 m/s) LV E/e LAT 6.20 (<14) Aortic Valve LVOT Area 3.96 cm2 LVOT Vmax 0.95 m/s LVOT Mean Stephen. 0.63 m/s LVOT Peak Gr. 3.6 mmHg AoV Area Vmax 0.00 m/s LVOT Mean Gr. 1.8 mmHg AoV Area/ BSA (Vmax) 1.42 cm2/m2 LVOT VTI 0.167 m OMA Mean Stephen. 0.00 m/s AoV Vmax 1.00 (0.5-1.3 m/s) OMA Mean Stephen. Index 1.35 cm2/m2 AoV Mean Stephen. 0.69 m/s AoV Peak Grad 4.0 mmHg AoV Mean Grad 2.1 (<5 mmHg) AoV VTI 0.199 (0.18-0.25 m) AoV Area VTI 3.61 (2.5-4.5 cm2) AoV Area/ BSA (VTI) 1.35 cm/m2 Mitral Valve MV E Max Stephen. 0.69 (0.4-1.3 m/s) MV A Velocity 0.60 (0.4-1.3 m/s) E/A Ratio 1.11 MV Decel. Time 262.35 (160-240 msec) MV PHT 76.09 msec MVA PHT 2.85 cm2 Pulmonary Valve PV Peak Velocity 1.01 (0.5-1.5 m/s) RVOT Peak Gr. 3.59 mmHg RVOT Peak Stephen. 0.95 m/s RVOT Mean Gr. 1.75 mmHg RVOT VTI 0.15 m Tricuspid Valve TR P. Velocity 2.46 m/s TV Regurg Vmax 2.46 m/s RAP Estimate 3.00 mmHg RVSP 27.22 mmHg TR P. Gradient 24.20 mmHg
== END 2019-03-31 02:18 ==
PROVIDERS: PCP Nurse Practitioner Family; Visit Provider Nurse Practitioner Family
DX: I48.91 Unspecified atrial fibrillation (principal); I42.9 Cardiomyopathy, unspecified
CPT/HCPCS: 93306

== ENCOUNTER 2019-04-14 08:49 | Outpatient (CLI) | payer MEDICAID, SELFPAY | END 2019-04-14 09:09 | PROVIDERS: PCP Nurse Practitioner Family; Visit Provider Internal Medicine Cardiovascular Disease | DX: I48.91 Unspecified atrial fibrillation (principal); I10 Essential (primary) hypertension | CPT/HCPCS: 93005; 93010 ==

== ENCOUNTER 2019-08-05 01:42 | Outpatient (CLI) | payer MEDICAID, SELFPAY ==
--- NOTE | 2019-08-05 13:05 | DI.CT_ITS ---
EXAM: CT CHEST WO CLINICAL HISTORY: F/U 3 MM NODULE RT LATERAL LUNG ON CT 02/15, R91.1. TECHNIQUE: Imaging protocol: Axial computed tomography images were obtained and coronal and sagittal reformatted images were created and reviewed. COMPARISON: CT CT CHEST PE CTA from 02/04/2019 CR,XR XR PORTABLE CHEST AP from 02/04/2019 FINDINGS: Exam is somewhat limited by patient body habitus. Tracheobronchial tree: Patent where visualized. Mediastinum and Mandi: No dominant adenopathy or fluid collection. Pulmonary parenchyma: No consolidation. There is a stable 3 millimeter circumscribed nodule in the l ateral right upper lobe. No additional nodules are identified. No visible emphysematous or fibrotic changes. Pleura: No effusion or pneumothorax. Heart: The heart is not dilated. Minimal coronary artery calcifications are seen. Aorta: Thoracic aorta non-dilated. Upper abdomen: Unremarkable. Lymph nodes: Within normal limits. Bones:Kyphoscoliosis. No suspicious lesions. IMPRESSION: Stable 3 millimeter nodule in the lateral aspect of the right upper lobe. There are no suspicious fe atures. No follow-up is indicated unless there is an increased risk of lung cancer, in which case a low dose screening chest CT could be performed in 1 year. RADIATION DOSE DELIVERED: Total DLP Total DLP DATA REPOSITORY: All CT scans at this facility are submitted to the National Radiology Data Registry (NRDR) Dose Index Registry (DIR) with the [employer] (ACR). RADIATION OPTIMIZATION: All CT scans at this facility use at least one of these dose optimization te chniques: automated exposure control; mA and/or kV adjustment per patient size (includes targeted exa ms where dose is matched to clinical indication); or iterative reconstruction.
== END 2019-08-05 02:02 ==
PROVIDERS: PCP Nurse Practitioner Family; Visit Provider Nurse Practitioner Family
DX: R91.1 Solitary pulmonary nodule (principal)
CPT/HCPCS: 71250

== ENCOUNTER 2019-08-29 01:53 | Outpatient (CLI) | payer MEDICAID, SELFPAY ==
--- NOTE | 2019-08-29 | DI.US_ITS ---
EXAM: US THYROID CLINICAL HISTORY: F/U THYROID NODULES, E04.1 TECHNIQUE: Ultrasound performed using standard protocol. Thyroid ultrasound was performed accordin g to the usual protocol. COMPARISON: US US THYROID from 02/23/2019 US US ECHOCARDIOGRAM from 03/31/2019 FINDINGS: The right thyroid lobe measures 47 x 12 x 14 millimeters and left lobe measures 47 x 17 x 20. The is thmus measures 12 millimeters in thickness. There are 2 left lobe thyroid nodules, the more superiorly located nodule measures about 12 x 12 x 7 millimeters and is hypoechoic with internal calcifications, some of which appear to be rim calcificat ions. The more inferiorly located nodule measures 14 x 14 x 11 millimeters. This is heterogeneous, very hy poechoic, almost completely solid. Margin is smooth. Peripheral macrocalcifications appear to be pr esent. Prior scan of January 2019 showed measurements of the superior left lobe thyroid nodule 14 x 14 x 15 millimeters and measurements of the inferior left thyroid nodule 13 x 12 x 9 millimeters. IMPRESSION: Two dominant left lobe thyroid nodules are noted, 1 of these has increased mildly in size since the p rior study, internal characteristics are consistent with a TI-RADS score of 7 points, TR 5.. This is consistent with a highly suspicious lesion; fine-needle aspiration is suggested as this lesion is gre ater than 1 cm diameter. DATA REPOSITORY: ,
== END 2019-08-29 02:13 ==
PROVIDERS: PCP Nurse Practitioner Family; Visit Provider Nurse Practitioner Family
DX: E04.1 Nontoxic single thyroid nodule (principal); E07.89 Other specified disorders of thyroid
CPT/HCPCS: 76536

== ENCOUNTER 2019-09-06 13:50 | Outpatient (REF) | payer MEDICAID, SELFPAY ==
[2019-09-06 19:05] LABS: Anion Gap 7.7 mmol/L (3-11); BUN 15 mg/dL (7-18); CO2 29.3 mmol/L (21.0-32.0); CREATININE 0.87 mg/dL (0.70-1.30); Calcium 9.4 mg/dL (8.5-10.1); Chloride 104 mmol/L (98-107); Glucose 96 mg/dL (74-106); Potassium 4.5 mmol/L (3.5-5.1); Sodium 141 mmol/L (136-145)
[2019-09-06 19:14] LABS: HGB 15.5 g/dL (13.5-17.5); Mean Corp. HGB Concentration 32.3 g/dL (32.0-36.0); Mean Corpuscular Hemoglobin 28.4 pg (27.0-33.0); Mean Corpuscular Volume 88.1 fL (80-95); Mean Platelet Volume 10.2 fL (8.0-11.0); Platelet Count 333 x1000/uL (130-400); RBC 5.45 m/cumm (4.50-6.00); RBC Distribution Width 14.7 % (11.8-14.1); White Blood Cell Count 7.91 k/cumm (4.4-10.8)
== END 2019-09-06 14:10 ==
LOC: NCHCN 13:50
PROVIDERS: PCP Nurse Practitioner Family; Visit Provider Nurse Practitioner Family
DX: I48.91 Unspecified atrial fibrillation (principal); E11.9 Type 2 diabetes mellitus without complications; G47.33 Obstructive sleep apnea (adult) (pediatric)
CPT/HCPCS: 80048; 85027

== ENCOUNTER 2019-12-08 08:42 | Outpatient (REF) | payer MEDICAID, SELFPAY ==
[2019-12-08 20:11] LABS: Calculated LDL 99 mg/dL (<100); Cholesterol 161 mg/dL (<200); HDL Cholesterol 31 mg/dL (40-60); Triglyceride 157 mg/dL (<150)
== END 2019-12-08 09:02 ==
LOC: NCHCN 08:42
PROVIDERS: PCP Nurse Practitioner Family; Visit Provider Nurse Practitioner Family
DX: Z13.220 Encounter for screening for lipoid disorders (principal)
CPT/HCPCS: 80061

== ENCOUNTER 2020-04-11 22:46 | Observation (INO) | payer MEDICAID, SELFPAY ==
[2020-04-11] VITALS (15 sets, daily range): BP systolic 134–224; BP diastolic 73–191; PULSE 66–168; RESP 13–21; TEMP 36.5; O2SAT 95–97
--- NOTE | 2020-04-11 22:45 | RT.EKG_ITS ---
APPROVED REPORT Exam: Resting ECG Patient Location: E HR:124 bpm ECG Measurements Heart Rate 124 AXIS [place] 119 P 0 QRSd 88 QRS 30 QT 347 T 45 QTc 499 Conclusion Physician:Atrial fibrillation, rate 124, no significant ST elevations or depressions, no STEMI, inter vals unremarkable otherwise.
--- NOTE | 2020-04-11 22:57 | W.ED.GENAD ---
Discharge Plan Disposition Patient Disposition: [facility] INPATIENT Condition: Stable Discharge Details Clinical Impression: Atrial fibrillation with rapid ventricular response Primary Care Provider: Rayne Worrell ED Provider: Iban Clements Home Meds and New Rx's Prescriptions: No Action metformin 500 mg tablet 500 mg PO BID RF: 0 glipizide 5 mg Tablet 5 mg PO DAILY RF: 0 pantoprazole 40 mg Tablet,Delayed Release (Dr/Ec) 40 mg PO DAILY@0730 Qty: 30 RF: 0 Eliquis 5 mg Tablet 5 mg PO BID Qty: 60 RF: 0 verapamil 200 mg capsule, [address] 200 mg PO QHS Qty: 30 RF: 0 Medical Decision Making Upon my evaluation, this patient had a high probability of imminent or life-threatening deterioration, which required my direct attention, intervention, and personal management. I have personally provided 45 minutes of critical care time exclusive of time spent on separately billable procedures. Time includes review of laboratory data, radiology results, discussion with consultants, and monitoring for potential decompensation. Interventions were performed as documented. 49-year-old male with a past medical history of atrial fibrillation on Eliquis and verapamil, as well as a history of morbid obesity, type 2 diabetes, presents today for evaluation of palpitations. Patient states that 20 minutes prior to arrival when he got up from a seated position he felt mild palpitations, he denies any significant syncope or lightheadedness. He felt his heart rate and noted that he was in the 120s 130s. EMS was called and patient was brought to the ER for further assessment. He denies any chest pain, shortness of breath, fever or chills. He takes his Eliquis daily as directed and has not missed any doses. He has not yet taken his nighttime verapamil dose. He denies any dysuria, cough, or other or new medications. There is no history of alcohol use. No other complaints at this time. No history of IV or illicit drug use. Physical exam is unremarkable. No calf tenderness, he has been taking his Eliquis as directed. Mild dry mucous membranes, may be a component of his symptomatology. We will gently rehydrate, give his nighttime dose of verapamil, monitor closely and reassess. 3:30 AM Laboratory work-up has returned, no significant abnormalities. Troponin normal. Electrolytes normal. Patient was given his home dose of verapamil, no change with that after 2 to 3 hours, he was then given 15 mg of Cardizem, no change with that, and an hour later he was given an additional 15 mg of Cardizem, no consistant change with that, an hour later he was given 5 of metoprolol, no consistant change with that, he has been started on a Cardizem drip at 10 mg/h and if there is no improvement we will increase his 10 mg/h. He remains hemodynamically stable otherwise. No chest pain or other symptomatology at this time. He has been rehydrated with 2 L of normal saline, recommend admission. Discussed the case with the hospitalist Dr. Duran. Agrees with the assessment and plan. I have extensively reviewed the treatment plan with the patient. I have addressed all patient concerns at this time. I have also discussed the plan with the admitting physician and they agree with the current assessment and plan and have agreed to assume responsibility for the patient. All parties demonstrate verbal understanding and agreement with our assessment and plan at this time. Dr. Duran has requested that we administer an additional 5 mg of IV metoprolol and 25 mg oral metoprolol, we will place his orders on his behalf. EKG 22: 55 Atrial fibrillation, rate 124, no significant ST elevations or depressions, no STEMI, intervals unremarkable otherwise. HPI General Date/Time Provider Initiated Documentation: 04/11/20 22:52. HPI Narrative: 49-year-old male with a past medical history of atrial fibrillation on Eliquis and verapamil, as well as a history of morbid obesity, type 2 diabetes, presents today for evaluation of palpitations. Patient states that 20 minutes prior to arrival when he got up from a seated position he felt mild palpitations, he denies any significant syncope or lightheadedness. He felt his heart rate and noted that he was in the 120s 130s. EMS was called and patient was brought to the ER for further assessment. He denies any chest pain, shortness of breath, fever or chills. He takes his Eliquis daily as directed and has not missed any doses. He has not yet taken his nighttime verapamil dose. He denies any dysuria, cough, or other or new medications. There is no history of alcohol use. No other complaints at this time. No history of IV or illicit drug use. Related Data Home Medications Medication Instructions Recorded Confirmed glipizide 5 mg PO DAILY 02/04/19 04/11/20 apixaban [Eliquis] 5 mg PO BID #60 tab 02/06/19 04/11/20 pantoprazole 40 mg PO DAILY@0730 #30 tab 02/06/19 04/11/20 verapamil 200 mg PO QHS #30 cap 02/06/19 04/11/20 metformin 500 mg tablet 500 mg PO BID tab 04/14/19 04/11/20 Previous Rx's Medication Instructions Recorded apixaban [Eliquis] 5 mg PO BID #60 tab 02/06/19 pantoprazole 40 mg PO DAILY@0730 #30 tab 02/06/19 verapamil 200 mg PO QHS #30 cap 02/06/19 Allergies Allergy/AdvReac Type Severity Reaction Status Date / Time No Known Allergies Allergy Unverified 04/11/20 23:20 General Stated Complaint: Palpitatns VARGHESE: 3 Review of Systems All systems reviewed & are unremarkable except as noted in HPI and below PFSH Medical History (Updated 04/12/20 @ 03:32 by Iban Clements DO) Atrial fibrillation Cholecystitis Diabetes mellitus Left knee pain Pulmonary nodule Thyroid nodule Social History Smoking/Tobacco Use Status: Never Smoking risk assessment performed?: Yes Alcohol Intake: never Drug use: Never Substance use type: does not use What type of physical activity do you participate in: none Do you feel safe at home: Yes Do you feel safe in your relationship?: Yes Exam Narrative Exam Narrative: 1.Const: Well-nourished, Well-developed, appearing stated age 2.Eyes: PERRL, no conjunctival injection, and symmetrical lids. 3.ENT: Atraumatic external nose and ears. Dry MM. Neck: Symmetric, trachea midline, No thyromegaly. 4.CVS: +S1/S2, No murmurs or gallops. Peripheral pulses 2+ and equal in all extremities. Brisk capillary refill in all extremities. 5.RESP: Unlabored respiratory effort. Clear to auscultation bilaterally. No wheezes rales or rhonchi 6.GI: Soft, Nontender/Nondistended, No hepatosplenomegaly. No guarding or rebound. 7.MSK: Normocephalic/Atraumatic, Extremities w/o deformity or ttp No cyanosis or clubbing, Normal movement of all extremities, no calf tenderness 8.Skin: Warm, Dry. No rashes or lesions. 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 Sensation grossly intact, no focal neurologic deficits. 10.Psych: (AAO) x3. Appropriate mood and affect Course Vital Signs Vital signs: Vital Signs Temperature 36.5 C 04/11/20 22:45 Pulse 131 H 04/11/20 22:45 Respiratory Rate 19 04/11/20 22:45 Blood Pressure 156/110 H 04/11/20 22:45 Pulse Oximetry 95 04/11/20 22:45 Temperature 36.5 C 04/11/20 22:45 Temperature Source Temporal Artery Scan 04/11/20 22:45 Pulse 131 H 04/11/20 22:45 Respiratory Rate 04/11/20 22:45 Respiratory Effort Non-Labored 04/11/20 22:54 Blood Pressure 156/110 H 04/11/20 22:45 Blood Pressure Position Supine 04/11/20 22:45 Pulse Oximetry 95 04/11/20 22:45 Oxygen Delivery Method Room Air 04/11/20 22:45 Oxygen Flow Rate 0 04/11/20 22:45 Pain Level 0 04/11/20 22:54
[2020-04-11 23:06] LABS: Abs Immature Grans 0.03 10^3/uL (0.0-0.06); Absolute Basophil Count 0.09 10^3/uL (0.0-0.2); Absolute Eosinophil Count 0.23 10^3/uL (0.0-0.7); Absolute Monocyte Count 1.05 10^3/uL (0.1-0.8); Absolute Neutrophil Count 4.93 10^3/uL (1.2-6.7); Basophils % 0.8; Eosinophils % 2.2; HCT 50.5 % (40.0-50.0); HGB 16.5 g/dL (13.5-17.5); Immature Grans % 0.3; Lymphocytes % 40.5; MCH 28.4 pg (27.0-33.0); MCHC 32.7 % (32.0-36.0); MCV 87.1 fL (80-95); MPV 10.2 fL (8.0-11.0); Monocytes % 9.9; Neutrophils % 46.3; Nucleated RBC 0 %; Platelet Count 316 10^3/uL (130-400); RDW 13.6 % (11.8-14.1); RDW-SD 42.8 fL; WBC 10.63 10^3/uL (4.4-10.8)
[2020-04-11] MEDS: Normal Saline 1,000 ML 1000 ML IV (23:06)
[2020-04-11 23:25] LABS: ALT 23 U/L (16-63); AST 15 U/L (15-37); Albumin 3.5 g/dL (3.4-5.0); Alkaline Phosphatase 74 U/L (46-116); BUN 11 mg/dL (7-18); Bilirubin, Total 0.4 mg/dL (0.2-1.0); CREATININE 0.86 mg/dL (0.70-1.30); Calcium 9.2 mg/dL (8.5-10.1); Chloride 101 mmol/L (98-107); Glucose 129 mg/dL (74-106); INR 1.1 (0.9-1.1); PTT Activated 28.5 sec (21.0-27.5); Potassium 3.6 mmol/L (3.5-5.1); Prothrombin Time 10.6 sec (9.3-11.0); Sodium 137 mmol/L (136-145); Total Protein 8.6 g/dL (6.4-8.2)
[2020-04-11 23:26] LABS: Troponin I < 0.05 ng/mL (<0.06)
[2020-04-12] VITALS (46 sets, daily range): BP systolic 109–257; BP diastolic 70–144; PULSE 48–163; RESP 14–24; TEMP 36–37.1; O2SAT 94–100
[2020-04-12] MEDS: dilTIAZem 25 MG/5 ML VIAL 15 MG IVP ×2 (00:19→01:15)
[2020-04-12] MEDS: Normal Saline 1,000 ML 1000 ML IV (01:41)
[2020-04-12] MEDS: Metoprolol 5 MG/5 ML VIAL IVP ×3 (02:16→10:30)
--- NOTE | 2020-04-12 03:50 | W.PM.HP.N ---
Date of service: 04/12/20 Time of Service: 03:50 Assessment and Plan Assessment and plan (1) Atrial fibrillation with rapid ventricular response: Status: Acute Assessment and plan: AF/RVR. I think we just need to titrate up his meds. Adding beta cory seems to be doing the trick. Will monitor after PO dose to ensure rates maintaining satisfactory, and will update TSH. Continue DOAC as is. History of Present Illness History of Present Illness Chief Complaint: palpitations Narrative: 49 male with h/o AF, comes in with inytermittent palpitations. In DR HOLLAND with RVR noted, rates up to 150s and 160s. On Verapamil, states has not missed doses. Given Verapamil 240 SR, then Cardizem IV 30 in divided doses and then 5 Lopressor IV. Rate has transiently slowed to as low as 90s but has continued to spike back up to mid 100s. I was called to see patient. On my arrival pulses 110s-130s. Additional 5 Lopressor given, pulse down to 90s, and then ordered for 25 PO. Given difficulty in controlling rate he is admitted. Troponin negative. EKG AF w/o STTWCs. TSH 2.0 in 2019. Review of Systems All systems reviewed & are unremarkable except as noted in HPI and below PFSH Medical History Atrial fibrillation Cholecystitis Diabetes mellitus Left knee pain Pulmonary nodule Thyroid nodule Social History Smoking/Tobacco Use Status: Never Smoking risk assessment performed?: Yes Alcohol Intake: never Drug use: Never Substance use type: does not use What type of physical activity do you participate in: none Do you feel safe at home: Yes Do you feel safe in your relationship?: Yes Meds Home Medications and Allergies Home Medications Medication Instructions Recorded Confirmed Type glipizide 5 mg PO DAILY 02/04/19 04/11/20 History apixaban [Eliquis] 5 mg PO BID #60 tab 02/06/19 04/11/20 Rx pantoprazole 40 mg PO DAILY@0730 #30 tab 02/06/19 04/11/20 Rx verapamil 200 mg PO QHS #30 cap 02/06/19 04/11/20 Rx metformin 500 mg tablet 500 mg PO BID tab 04/14/19 04/11/20 History Allergies Allergy/AdvReac Type Severity Reaction Status Date / Time No Known Allergies Allergy Unverified 04/11/20 23:20 Exam Narrative Exam Narrative: 116/88, 117, 36.5, 14, 96% RA. HEENT unremarkable; neck supple; lungs clear; heart irr/irr; abdomen soft and NT; extremities trace pedal edema; neuro Ox3, nonfocal Results Labs Result diagrams: 04/11/20 22:31 04/11/20 22:31 Labs: Laboratory Results - last 24 hr 04/11/20 04/11/20 04/11/20 22:31 22:31 22:31 WBC 10.63 RBC 5.80 H Hgb 16.5 Hct 50.5 H MCV 87.1 MCH 28.4 MCHC 32.7 RDW 13.6 Plt Count 316 MPV 10.2 Immature Gran % 0.3 Neutrophils % 46.3 Lymphocytes % 40.5 Monocytes % 9.9 Eosinophils % 2.2 Basophils % 0.8 Nucleated RBC % 0 Absolute Neutrophils 4.93 Absolute Lymphocytes 4.30 H Absolute Monocytes 1.05 H Absolute Eosinophils 0.23 Absolute Basophils 0.09 PT 10.6 INR 1.1 APTT 28.5 H Sodium 137 Potassium 3.6 Chloride 101 Carbon Dioxide 24.0 Anion Gap 12.0 H BUN 11 Creatinine 0.86 Estimated GFR/1.73 m2 >= 60.00 Glucose 129 H Calcium 9.2 Total Bilirubin 0.4 AST 15 ALT 23 Alkaline Phosphatase 74 Troponin I < 0.05 Total Protein 8.6 H Albumin 3.5 Last Vital Signs Temp 36.5 C 04/11/20 22:45 Pulse 117 H 04/12/20 03:44 Resp 14 04/12/20 03:10 BP 116/88 04/12/20 03:44 Pulse Ox 96 04/12/20 03:10 COVID-19 Screening Have you, or household traveled for leisure in last 14 days?: No Had IN PERSON contact w/suspected or confirmed C-19 person: No
[2020-04-12] MEDS: Metoprolol 25 MG TAB PO (03:52)
[2020-04-12] MEDS: Apixaban 5 MG TAB PO ×2 (07:38→19:51)
[2020-04-12] MEDS: metFORMIN 500 MG TAB PO (07:38)
[2020-04-12] MEDS: Pantoprazole 40 MG TABCR PO (07:38)
--- NOTE | 2020-04-12 10:26 | PDOC.CMIN ---
- If Service Date Differs Date of service: 04/12/20 Time of Service: 10:26 Care Management Initial Assess REASON FOR HOSPITALIZATION:: Afib with rvr PAST MEDICAL HISTORY/PAST SURGICAL HISTORY:: Medical History . Atrial fibrillation. Cholecystitis. Diabetes mellitus. Left knee pain. Pulmonary nodule. Thyroid nodule PREVIOUS FUNCTIONAL STATUS/SOCIAL/FAMILY SUPPORTS:: Gilbert lives in an apartment in [facility] with his mother and father. He is currently unemployed . 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 He is not on disability. Gilbert has 1 brother in [place] and 2 sisters in [place]. He is independent in the community and with ASDLs but does not drive. He receives no community supports and does not use any assistive devices. CURRENT FUNCTIONAL STATUS:: Gilbert was sitting up in a chair when CM met with him. He was polite and agreable to conversation but offered very little without prompting. He stated that he would be much better at home. He shared that this is his second episode of afib and that he has a follow up cardiology appointment next week. When asked , Gilbert admitted he was bored so CM offered him a word search book which he readily accepted. CM also offered to assist with setting Gilbert up with the Portal but he declined; he just requested the brochure. ADVANCE DIRECTIVES:: none on file but states that he has completed them and his PCP has a copy. Has patient been provided with info about the portal/API?: Yes Did the patient sign up for the portal?: No (given brochure) CODE STATUS:: Full Code INSURANCE COVERAGE / FINANCIAL ISSUES:: Medicaid CURRENT HOME/COMMUNITY SERVICES/EQUIPMENT:: none PRIMARY CARE PHYSICIAN:: Rayne Worrell POTENTIAL DISCHARGE NEEDS:: follow up with cardiology, pcp and discharge plan of care PATIENT/FAMILY EDUCATION NEEDS:: Discharge plan, follow up, limitations, Ask Me Three TRANSPORTATION:: via private vehicle with family PLAN:: Gilbert will likely be discharged home with no new services. He will follow up with his Compliance Auditor next week as well as his PCP and plan of care. CM will continue to support Gilbert and his discharge needs.
--- NOTE | 2020-04-12 12:35 | PGE_ITS ---
Date of Service Date of service: 04/12/20 Time of Service: 12:36 Assessment and Plan Assessment and plan (1) Atrial fibrillation with rapid ventricular response: Status: Acute Assessment and plan: Begin Lopressor 50 mg p.o. 4 times daily in addition to as needed Lopressor 5 mg IV every hour as needed sustained heart rate greater than or equal to 120 bpm continue current dose of verapamil. Continue current dose of Eliquis. Obtain Zio patch Holter monitor upon discharge. Obtain echocardiogram. Refer patient back to Dr. Rosenberg upon discharge. Consider outpatient stress MPI. (2) Diabetes mellitus: Status: Chronic Assessment and plan: Patient is currently on his home medications glipizide and metformin. Blood sugars were not ordered. I put in an order for fingersticks twice daily. 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 The inferiorly located nodule measures 14 x 14 x 11 mm and is heterogeneous and hypoechoic with almost completely solid appearance. Patient reports that this is being followed by Dr. Gt Worley out of [facility] in [facility]. He states his last ultrasound was done in November and is now being followed every 6 months. At present I am not going to pursue further evaluation of this I just want to verify with the patient that he is aware of this and is being monitored. Apparently his sister had thyroid cancer. Subjective Subjective Interval history since last seen: Patient remains in atrial fibrillation with variable rates. With activity his heart rate gets up to 150 but with rest of the down into the 60s. Patient has a history of paroxysmal atrial fibrillation, allegedly had been in sinus rhythm although I cannot find a documented Holter's showing maintenance of sinus rhythm since his last visit with Dr. Rosenberg in March 2019. His echocardiogram in March 2019 showed normal left ventricular and right ventricular systolic function however he has some asymmetric LVH with severe thickening of the posterior wall but asymmetric septal hypertrophy. He has no significant valvular heart disease. He does have obstructive sleep apnea for which he says he wears his CPAP. He denies alcohol or tobacco use. Despite getting his verapamil extended release last night and receiving additional ginna apamil SR 240 mg this morning his A. fib rate has been variable. He seems to respond well to Lopressor IV. I will start him on program doses of Lopressor 50 mg p.o. every 6 hours. I reached out to Dr. Skyla Bonilla she had no further recommendations at this time and said that they will see him at his scheduled visit in 10 days. I will repeat his echocardiogram to be sure there is been no change in his LV or RV function. I have asked the patient to have his family bring in his CPAP machine as he will need to be here overnight while we adjust his heart rate medications. I suggested to Dr. Bonilla to consider him for antiarrhythmic such as Tambocor she said that Dr. Rosenberg will evaluate that once he is seen as an outpatient. I indicated that I will have the patient do a outpatient Zio patch upon discharge. Patient seems to think that he had a stress test done as an outpatient through physical therapy. I told him that therapy does not do stress testing. I cannot find a stress test in our records. Given his age and diabetes and borderline hypertension he should have an outpatient stress MPI. I will arrange this as an outpatient upon discharge. Exam Narrative Exam Narrative: Middle-age morbidly obese male sitting up in his chair watching TV. He has a very flat affect. Otherwise alert and oriented. Lungs are clear to auscultation Heart is irregularly irregular and fast rate. Abdomen is obese soft and nontender. Objective Last Vital Signs Temp 36.5 C 04/12/20 11:19 Pulse 65 04/12/20 11:19 Resp 17 04/12/20 11:19 BP 129/74 04/12/20 11:19 Pulse Ox 96 04/12/20 11:19 Laboratory Results - last 24 hr 04/11/20 04/11/20 04/11/20 22:31 22:31 22:31 WBC 10.63 RBC 5.80 H Hgb 16.5 Hct 50.5 H MCV 87.1 MCH 28.4 MCHC 32.7 RDW 13.6 Plt Count 316 MPV 10.2 Immature Gran % 0.3 Neutrophils % 46.3 Lymphocytes % 40.5 Monocytes % 9.9 Eosinophils % 2.2 Basophils % 0.8 Nucleated RBC % 0 Absolute Neutrophils 4.93 Absolute Lymphocytes 4.30 H Absolute Monocytes 1.05 H Absolute Eosinophils 0.23 Absolute Basophils 0.09 PT 10.6 INR 1.1 APTT 28.5 H Sodium 137 Potassium 3.6 Chloride 101 Carbon Dioxide 24.0 Anion Gap 12.0 H BUN 11 Creatinine 0.86 Estimated GFR/1.73 m2 >= 60.00 Glucose 129 H Calcium 9.2 Total Bilirubin 0.4 AST 15 ALT 23 Alkaline Phosphatase 74 Troponin I < 0.05 Total Protein 8.6 H Albumin 3.5 TSH 04/11/20 23:02 WBC RBC Hgb Hct MCV MCH MCHC RDW Plt Count MPV Immature Gran % Neutrophils % Lymphocytes % Monocytes % Eosinophils % Basophils % Nucleated RBC % Absolute Neutrophils Absolute Lymphocytes Absolute Monocytes Absolute Eosinophils Absolute Basophils PT INR APTT Sodium Potassium Chloride Carbon Dioxide Anion Gap BUN Creatinine Estimated GFR/1.73 m2 Glucose Calcium Total Bilirubin AST ALT Alkaline Phosphatase Troponin I Total Protein Albumin TSH 3.00
[2020-04-12] MEDS: Metoprolol 50 MG TAB PO ×2 (12:46→18:46)
--- NOTE | 2020-04-12 13:39 | DI.US_ITS ---
APPROVED REPORT EXAM: Comprehensive 2D, Doppler, and color-flow Echocardiogram Patient Location: In-Patient Room/Bed: 225 Clinical Mental Health Counselor: Lavonne Ag RDCS (AE) Indications: A Fib, LVH, Evaluate LV size Other Information Study Quality: Fair. Technically limited study due to body habitus. Conclusion Normal left ventricular chamber size and wall thickness. Estimated ejection fraction is 50%, borderl ine normal Left atrium is normal in size Right atrium and right ventricle are not well visualized No significant valvular disease Mildly dilated ascending aorta 3.74 cm Wall motion Left Ventricle The left ventricle is normal size. The overall left ventricular systolic function appears borderline normal. There is normal left ventricular wall thickness. There is normal LV segmental wall motion. Th ere is no ventricular septal defect visualized. LVEF is 50%. Right Ventricle Right ventricle is not well visualized. Right ventricular systolic function could not be assessed. Th e RVSP is 25.0mmHg. Atria The left atrium size is normal. Right atrium is not well visualized. The interatrial septum is intact with no evidence for an atrial septal defect. Aortic Valve The aortic valve is normal in structure. Aortic valve is trileaflet. There is no aortic valvular sten osis. No aortic regurgitation is present. Mitral Valve The mitral valve is normal in structure. No evidence of mitral valve stenosis. Trace mitral regurgita tion. Tricuspid Valve The tricuspid valve is normal in structure. There is no tricuspid valve stenosis. Mild tricuspid regu rgitation. Pulmonic Valve The pulmonary valve is normal in structure. There is no pulmonic valvular stenosis. There is no pulmo mitchel valvular regurgitation. Great Vessels The aortic root is normal in size. The ascending aorta is mildly dilated. IVC is normal in size and c ollapses >50% with inspiration. Pericardium There is no pericardial effusion. 2D Dimensions IVSD d PLAX 1.03 cm M: 0.6-1.2 LV Vol A2C d MOD 158.4 mL LVPW d PLAX 1.03 cm M: 0.6 - 1.2 LV Vol A4C d MOD 154.5 mL LVID d PLAX 4.74 cm M: 4.2 - 5.8 LV EF A4C MOD 50.4 % LVDs 3.50 cm M: 2.5 - 4.0 LV EF A2C MOD 49.9 % Ao Root d 2.86 cm M: 3.1 - 3.7 LV EF Biplane MOD 49.2 % Ao Asc Diam d 3.74 cm M: 2.6 - 3.4 SV 77.24 mL LV EF Teichholz 51.0 % SV Index 27.85 mL/m2 LVEF (Kilgore's) 49.24 % M: 52 - 72 LV Volume 106.70 mL M: 62 - 150 LV Volume Index 38.51 mL/m2 M: 34 - 74 LV Vol Biplane MOD 156.8 mL FS 25.95 % M-Mode TAPSE 1.86 cm (M/F) >1.7 LV Diastology MV E' medial 0.111 (>0.07 m/s) MV E Vmax 0.74 (0.4-1.3 m/s) LV E/e MED 6.65 (<14) MV E/E' medial 6.67 Aortic Valve LVOT Area 3.30 cm2 AoV Area Vmax 3.29 cm2 LVOT Vmax 0.87 m/s AoV Area/ BSA (Vmax) 1.19 cm2/m2 LVOT Mean Stephen. 0.53 m/s OMA Mean Stephen. 2.66 cm2 LVOT Peak Grad 3.0 mmHg OMA Mean Stephen. Index 0.96 cm2/m2 LVOT Mean Grad 1.3 mmHg LVOT VTI 0.156 m LVOT Diam s 2.00 cm AoV Vmax 0.87 m/s Velocity Ratio 1.00 AoV Mean Stephen. 0.66 m/s AoV Peak Grad 3.0 mmHg LVOT SV 51.53 mL AoV Mean Grad 1.8 mmHg AoV VTI 0.167 m AoV Area VTI 3.09 cm2 AoV Area/ BSA (VTI) 1.12 cm/m2 Mitral Valve MV DT 224 (160-240 msec) MV PHT 65 msec MV Area PHT 3.39 cm2 Pulmonary Valve PV Vmax 0.98 (0.5-1.5 m/s) RVOT Peak Gr. 2.03 mmHg PV Peak Grad 3.9 mmHg RVOT Mean Gr. 0.95 mmHg PV Mean Grad 1.9 mmHg RVOT VTI 0.137 m PV VTI 0.161 m RVOT Vmax 0.71 m/s Tricuspid Valve TR Peak Grad 22.0 mmHg TR Vmax 2.35 m/s RA Pressure 3.00 mmHg RVSP (TR) 25.0 mmHg
--- NOTE | 2020-04-12 14:02 | PHA.REVIEW ---
Pharmacy Admission Review - Admission Clinical Review (Last Updated 04/12/20 @ 12:17 by Justen Ventura) Atrial fibrillation with rapid ventricular response (Acute) No Known Allergies Allergy (Unverified 04/11/20 23:20) Height 5 ft 11 in Weight 173 kg - Renal Dosing Renal Dosing: BUN 11 mg/dL (7-18) 04/11/20 22:31 Creatinine 0.86 mg/dL (0.70-1.30) 04/11/20 22:31 Medications needing adjustments: Reviewed (eCrCl >100ml/min) - Anticoagulation Anticoagulation: Hgb 16.5 g/dL (13.5-17.5) 04/11/20 22:31 Hct 50.5 % (40.0-50.0) H 04/11/20 22:31 Plt Count 316 10^3/uL (130-400) 04/11/20 22:31 INR 1.1 (0.9-1.1) 04/11/20 22:31 Creatinine 0.86 mg/dL (0.70-1.30) 04/11/20 22:31 Therapeutic Anticoagulation: Reviewed Medications: Apixaban - Opiate Usage Evaluate Pain Scale/Pains Meds: N/A - Relevant Labs Sodium 137 mmol/L (136-145) 04/11/20 22:31 Potassium 3.6 mmol/L (3.5-5.1) 04/11/20 22:31 Chloride 101 mmol/L (98-107) 04/11/20 22:31 Electrolytes, C-Reactive P, ESR: Reviewed - DM Control DM Control: Glucose 129 mg/dL (74-106) H 04/11/20 22:31 Insulin Dosing: N/A (po metformin, glipizide) - Heart Failure/WI Heart Failure/WI: Troponin I < 0.05 ng/mL (<0.06) 04/11/20 22:31 EF%, ELVIRA's, B-Blockers, Diuretics: Reviewed (A-Fib: verapamil x2 one time doses of 240 given (takes 200mg at home), metoprolol 50g q6h ordered as he responded well to IVP dose) - BP Control BP Control: Blood Pressure 129/74 Blood Pressure 115/76 Blood Pressure 112/72 Blood Pressure 118/70 Blood Pressure 116/88 Blood Pressure 116/88 Blood Pressure 128/90 If elevated: Reviewed - Qtc Review If Elevated: Reviewed (QTc 499 on admission) - IV to PO Switch IV Medications: Reviewed - Home Meds Home Med List reviewed: Intervened Relevent Home Meds Not ordered & why?: Verapamil - one time dose given but scheduled order not entered - notified MD; all others orders... changed dosage forms of metformin and glipizide to reflect what he takes at home and adjusted orders accordingly. - Current meds Current Medication Order Review: Reviewed (BMP ordered, FS ordered)
--- NOTE | 2020-04-12 14:34 | CHAPLAIN ---
Gilbert was resting in bed when I visited. He was pleasant and engaged in a short conversation. He said he's in touch with family members. He lives in [facility] now, but moved here from [place]. I'll continue to visit.
[2020-04-12] MEDS: metFORMIN C.R. 500 MG TABCR PO (17:34)
[2020-04-12 20:27] LABS: COVID-19 RT-PCR UVMMC Result Negative (Negative)
[2020-04-13] MEDS: Metoprolol 50 MG TAB PO ×3 (00:07→11:31)
[2020-04-13 02:23] VITALS: BP 118/82; PULSE 78; RESP 20; TEMP 36.5; O2SAT 98
[2020-04-13 06:18] VITALS: BP 117/72; PULSE 76; RESP 18; TEMP 36.2; O2SAT 98
[2020-04-13 06:41] LABS: Hemoglobin A1C 5.8 % (<5.7)
[2020-04-13 07:39] VITALS: BP 130/85; PULSE 76; RESP 18; TEMP 36.9; O2SAT 98
[2020-04-13] MEDS: Apixaban 5 MG TAB PO (08:29)
[2020-04-13] MEDS: metFORMIN C.R. 500 MG TABCR PO (08:30)
[2020-04-13] MEDS: Pantoprazole 40 MG TABCR PO (08:30)
[2020-04-13 11:24] VITALS: BP 115/79; PULSE 98; RESP 17; TEMP 36.9; O2SAT 98
--- NOTE | 2020-04-13 12:34 | CCONE_ITS ---
Date of service: 04/13/20 Time of Service: 12:35 Assessment and Plan Assessment and plan (1) Atrial fibrillation with rapid ventricular response: Status: Acute Assessment and plan: The patient has recurrent atrial fibrillation. His rate is now controlled. I would recommend that for convenience and compliance he be transition to long-acting metoprolol succinate 200 mg once daily. His verapamil and Eliquis should be continued. As his rate is stable I think he could be discharged to outpatient follow-up as scheduled with Dr Rosenberg on April 23 History of Present Illness History of Present Illness Chief Complaint: Atrial fibrillation Narrative: This is a 49-year-old man who presented to the hospital because of palpitations. He has a history of morbid obesity, obstructive sleep apnea and paroxysmal atrial fibrillation which occurred in January 2019. At that time he reverted rather quickly to sinus rhythm. He was discharged on verapamil and Eliquis and has been compliant. Subsequently he was started on CPAP. His echocardiogram showed no significant underlying structural heart disease. He was scheduled for routine follow-up which is planned for April 23 The patient noted on the day of presentation that his heart was beating out of rhythm. He was not dizzy or lightheaded. He had no shortness of breath or chest discomfort. He came to the emergency room where atrial fibrillation recurrence was found, rate moderately elevated. He has been treated with continued verapamil and Eliquis, and metoprolol tartrate 50 mg every 6 hours has been initiated. At present his heart rate is between 70 and 90. He currently is asymptomatic Echocardiography was obtained during this hospitalization. His EF was borderline normal approximately 50%. Left atrial size was normal. There was no valvular disease Consults Consult date: 04/13/20 Requesting physician: Justen Ventura Review of Systems Cardiovascular Cardiovascular: Reports as per [facility] Medical History (Updated 04/12/20 @ 12:54 by Justen Ventura) Atrial fibrillation Cholecystitis Diabetes mellitus Left knee pain Pulmonary nodule Thyroid nodule Social History Smoking/Tobacco Use Status: Never Smoking risk assessment performed?: Yes Alcohol Intake: never Drug use: Never Substance use type: does not use What type of physical activity do you participate in: none Do you feel safe at home: Yes Do you feel safe in your relationship?: Yes Exam Narrative Exam Narrative: Morbidly obese man, sitting comfortably in the chair no acute distress Eyes Pupils: PERRL EOM: EOM intact bilaterally Neck Other: Neck is very thick and short , unable to assess JVP carotids are normal no bruit Resp Auscultation: clear to auscultation bilaterally Cardio Other: Apical impulse nonpalpable heart tones are distant rate is controlled no murmur gallop Extrem Other: No significant edema Results Last Vital Signs Temp 36.9 C 04/13/20 11:24 Pulse 98 H 04/13/20 11:24 Resp 17 04/13/20 11:24 BP 115/79 04/13/20 11:24 Pulse Ox 98 04/13/20 11:24 Labs Result diagrams: 04/11/20 22:31 04/11/20 22:31 Labs: Laboratory Results - last 24 hr 04/12/20 04/13/20 04:05 06:00 Hemoglobin A1c 5.8 H SARS-CoV-2 (PCR) Negative Nasopharyn COVID-19 PCR Not Applicable Ref Test Perform Site [facility] lab
--- NOTE | 2020-04-13 14:04 | CMPROGNOTE_ITS ---
- If Service Date Differs Date of service: 04/13/20 Time of Service: 14:04 Care Management Progress Note S/O: Gilbert was sitting up in a chair when CM met with him. He was polite but not talkative. He stated that he was feeling well and again hoped to be discharged. Per report, his afib has not been rate-controlled consistently. He will be seen in consultation by Cardiology today. A: Gilbert is a 49 year old man admitted on 04/12/20 with atrial fibrillation with RVR P:Gilbert will likely be discharged home with no new services. 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 CM will continue to support Gilbert and his discharge needs.
--- NOTE | 2020-04-13 14:46 | DSE_ITS ---
Date of service: 04/13/20 Time of Service: 14:46 DS: Diagnosis Discharge Diagnosis (1) Atrial fibrillation with rapid ventricular response: Status: Acute Discharge Plan Disposition Patient Disposition: HOME Condition: Improving Discharge Details Reason For Visit: AF Admit Date/Time: 04/12/20 04:00 Admit Provider: Praful Duran Attending Provider: Praful Duran Primary Care Provider: Rayne Worrell Hospital Course Hospital Course: 49-year-old male with a past medical history significant for BRENNA, paroxysmal atrial fibrillation, diabetes mellitus type 2, morbid obesity who presented to the emergency department with palpitations and was found to have A. fib with rapid ventricular rate. Patient is normally maintained on verapamil controlled release 200 mg nightly. He is also anticoagulated with Eliquis. He was treated in the emergency department with an oral dose of verapamil along with IV Lopressor. He was also given IV diltiazem. He had variable response to above treatment. Transiently got his heart rate down below 100 but then his heart rate would increase back up into the 150s. Patient was admitted to the medical/surgical floor on telemetry monitoring. He was given additional doses of IV Lopressor and then eventually put on oral Lopressor 50 mg 4 times daily and his verapamil was increased to 240 mg daily.Troponin level on admission was less than 0.05. No further troponin levels were obtained. Cardiology consultation was obtained as well as an echocardiogram. Echocardiogram showed normal left ventricular size and wall thickness with an ejection fraction of 50%. Left atrium size was normal. Right atrium and right ventricle were not well visualized. Dr. Skyla Bonilla, outside residential sales professional, covering for Dr. Praful Perez saw the patient on April 13, 2020 see her note for details. In summary she agreed with current management felt that he was adequately controlled and recommend transitioning to metoprolol succinate 20 mg once a day and continue his verapamil and Eliquis and patient should keep his follow-up with Dr. Praful Rosenberg on April 23. As the patient was asymptomatic of any chest pain or palpitations in spite of the fact that his paroxysmal atrial fibrillation rate was only variable control. Generally at rest heart rate was in the high 90s to low 100s but with activity would increase up into the 120s to 130s. Nevertheless the patient requested to return home. His Lopressor 50 mg 4 times daily was changed to Toprol-XL 200 mg once a day as verapamil 200 mg daily was increased to 240 mg of verapamil SR nightly. Zio patch was ordered and applied prior to discharge. Patient will keep his follow-up with Dr. Praful Rosenberg on April 23, 2020. If he has further symptoms of chest pain or palpitations or dizziness or lightheadedness he should return to the emergency department. Home Meds and New Rx's Prescriptions: New verapamil 240 mg capsule,ext rel. pellets 24 hr 240 mg PO DAILY Qty: 30 RF: 0 metoprolol succinate [Toprol XL] 200 mg tablet extended release 24 hr 200 mg PO HS Qty: 30 RF: 0 Continued pantoprazole 40 mg Tablet,Delayed Release (Dr/Ec) 40 mg PO DAILY@0730 Qty: 30 RF: 0 Eliquis 5 mg Tablet 5 mg PO BID Qty: 60 RF: 0 metformin 500 mg tablet extended release 24 hr 500 mg PO BID RF: 0 glipizide 5 mg tablet extended release 24hr 5 mg PO DAILY RF: 0 Discontinued verapamil 200 mg capsule, [address] 200 mg PO QHS Qty: 30 RF: 0 Discharge Instructions Instructions: A-fib (Atrial Fibrillation) (GEN) Stand Alone Forms: Nursing Discharge Form Referrals: Rayne Worrell [Primary Care Provider] - (please call to make follow up appointment for 1-2 weeks. ) Praful Rosenberg MD [ CONSULTING PHYSICIAN] - 04/23/20 1:00 pm Activity:: Activity as Tolerated Equipment/Supplies:: No Equipment Needed Diet:: Carb Counting Discharge Orders Discharge Orders: Discharge Order (Routine); Ordered 04/13/20 Ordered By: Justen Ventura Other Ambulatory Orders: HOLTER MONITER ZIO PATCH (Routine) Timeframe: 1 Day Facility: [facility] - Location: Respiratory Therapy Ordered By: Justen Ventura Discharge Data Discharge Date/Time-TO BE ENTERED AT DEPARTURE: 04/13/20 16:39 DS: Summary Status at Discharge Functional status at discharge: independent ambulation Overall status at discharge: patient is progressing back to baseline Mental Status: mental status grossly normal Speech and Movement: speech and movement normal Mood: congruent mood Affect: normal affect Time Spent with Patient providing and/or coordinating discharge services: Less than 30 minutes Exam Narrative Exam Narrative: Middle-age morbidly obese male sitting up in his chair watching TV. He has a very flat affect. Otherwise alert and oriented. Lungs are clear to auscultation Heart is irregularly irregular and fast rate. Abdomen is obese soft and nontender. Psych Mental Status: mental status grossly normal Speech and Movement: speech and movement normal Mood: congruent mood Affect: normal affect DS: Data Vitals/I&O Vitals and I&O: Vital Signs Temperature 36.9 C 04/13/20 11:24 Temperature Source Temporal Artery Scan 04/13/20 11:24 Pulse 98 H 04/13/20 11:24 Pulse Rhythm Irregular 04/13/20 09:00 Pulse 119 H 04/12/20 03:10 Respiratory Rate 17 04/13/20 11:24 Respiratory Effort Non-Labored 04/13/20 09:00 Respiratory Depth Normal 04/13/20 09:00 Respiratory Pattern Normal 04/13/20 09:00 Blood Pressure 115/79 04/13/20 11:24 Blood Pressure Mean 108 04/12/20 00:30 Blood Pressure Position Supine 04/11/20 22:45 Pulse Oximetry 98 04/13/20 11:24 Oxygen Delivery Method Room Air 04/13/20 11:24 Oxygen Flow Rate 0 04/13/20 11:24 Fraction of Inspired Oxygen (FIO2) 04/13/20 09:51 Pain Level 0 04/13/20 11:24 Comment 04/12/20 11:45 Intake & Output 04/12/20 04/13/20 04/13/20 23:59 11:59 23:59 Intake Total 480 / 2980 360 / 560 200 / 560 Balance 480 / 2980 360 / 560 200 / 560 Weight 172.7 kg Intake: Oral 480 / 960 360 / 560 200 / 560 Other: Urine Appearance Clear Clear Comment pt voided multiple times independently. pt voiding independently. Voiding Methods Toilet Toilet Urinal Data Completed and Pending Labs on day of discharge: Labs from last 24 hours 04/13/20 04/12/20 06:00 04:05 Hemoglobin A1c 5.8 H SARS-CoV-2 (PCR) Negative Nasopharyn COVID-19 PCR Not Applicable Ref Test Perform Site [facility] lab [facility] Medical History (Updated 04/12/20 @ 12:54 by Justen Ventura) Atrial fibrillation Cholecystitis Diabetes mellitus Left knee pain Pulmonary nodule Thyroid nodule Social History Smoking/Tobacco Use Status: Never Smoking risk assessment performed?: Yes Alcohol Intake: never Drug use: Never Substance use type: does not use What type of physical activity do you participate in: none Do you feel safe at home: Yes Do you feel safe in your relationship?: Yes
--- NOTE | 2020-05-10 12:31 | ZIOP_ITS ---
Date of service: 05/10/20 Time of Service: 12:31 14 Day Apprentice Technician Referring Provider:: yolanda Indications:: AF Note: This is a 14-day monitor ordered for indication of atrial fibrillation. ?The patient was in normal sinus rhythm for the majority of the recording with an average heart rate of 53 bpm. ?There were rare PACs and rare PVCs. There was one brief run of SVT which lasted 3 beats. ?There was one episode of atrial fibrillation which lasted 3 hours. This was 1% of the total time recorded. The average heart rate during this episode was 111 bpm (80-147 bpm). ?There was one episode of nonsustained ventricular tachycardia which lasted 5 beats. ?There were no pauses greater than 3 seconds and no evidence of high degree heart block. ?There were no patient triggered events.
== END 2020-04-13 16:39 | disposition home or self-care (01) ==
LOC: ER 04-12 04:28 → MS 04-12 04:30
PROVIDERS: Internal Medicine; Admitting Provider General Practice; Emergency Provider Student in an Organized Health Care Education/Training Program; PCP Nurse Practitioner Family; Visit Provider General Practice
DX: I48.0 Paroxysmal atrial fibrillation (principal); E11.9 Type 2 diabetes mellitus without complications; G47.33 Obstructive sleep apnea (adult) (pediatric); E66.01 Morbid (severe) obesity due to excess calories; Z68.43 Body mass index [BMI] 50.0-59.9, adult; Z79.84 Long term (current) use of oral hypoglycemic drugs
CPT/HCPCS: 36415; 80053; 93005; 93246; 93306; 96361; 96374; 96375; 96376; 99214; 99222; 99238; 99252; 99291; NC; U0003; 83036; 84443; 84484; 85025; 85610; 85730; 93010; 99217; 99218; G0378

== ENCOUNTER 2020-07-30 01:04 | Outpatient (CLI) | payer MEDICAID, SELFPAY ==
--- NOTE | 2020-07-30 15:00 | DI.CT_ITS ---
Exam(s) CT CHEST WO EXAM: CT CHEST WO CLINICAL HISTORY: F/U PULMONARY NODULE, R91.1. TECHNIQUE: Imaging protocol: Axial computed tomography images were obtained and coronal and sagittal reformatted images were created and reviewed. COMPARISON: CT CT CHEST WO from 08/05/2019 FINDINGS: Tracheobronchial tree: Patent where visualized. Pulmonary parenchyma: No consolidation or dominant measurable mass. There is no change in 3 mm subple ural nodule in the right upper lobe. No new pulmonary nodules are identified. Mediastinum and Mandi: No dominant adenopathy or fluid collection. Pleura: No effusion or pneumothorax. Heart: The heart is not dilated. Mild coronary artery calcification. No pericardial effusion. Aorta: Thoracic aorta non-dilated. Upper abdomen: Unremarkable. Lymph nodes: Within normal limits. Soft tissues: Unremarkable. Bones:No acute abnormality. IMPRESSION: Stable 3 mm right upper lobe pulmonary nodule. For low risk patients, no further follow-up is recomm ended. For high risk patient is (history of smoking or other known risk factors), optional CT scan o f the chest at 12 months may be obtained. RADIATION DOSE DELIVERED: 94.05mGy.cm Total DLP 94.05mGy.cm Total DLP DATA REPOSITORY: All CT scans at this facility are submitted to the National Radiology Data Registry (NRDR) Dose Index Registry (DIR) with the [employer] [place] [employer] (ACR). RADIATION OPTIMIZATION: All CT scans at this facility use at least one of these dose optimization te chniques: automated exposure control; mA and/or kV adjustment per patient size (includes targeted exa ms where dose is matched to clinical indication); or iterative reconstruction.
== END 2020-07-30 01:24 ==
PROVIDERS: PCP Nurse Practitioner Family; Visit Provider Nurse Practitioner Family
DX: R91.1 Solitary pulmonary nodule (principal)
CPT/HCPCS: 71250

== ENCOUNTER 2021-02-11 08:43 | Outpatient (REF) | payer MEDICAID, SELFPAY ==
[2021-02-11 19:53] LABS: Calculated LDL 91 mg/dL (<100); Cholesterol 147 mg/dL (<200); HDL Cholesterol 34 mg/dL (40-60); Triglyceride 110 mg/dL (<150)
== END 2021-02-11 08:44 | disposition home or self-care (01) ==
LOC: NCHCN 08:43
PROVIDERS: PCP Nurse Practitioner Family; Visit Provider Nurse Practitioner Family
DX: E11.9 Type 2 diabetes mellitus without complications (principal); E66.9 Obesity, unspecified
CPT/HCPCS: 80061

== ENCOUNTER → 2021-09-05 01:26 | Outpatient (CLI) | payer MEDICAID, SELFPAY ==
--- NOTE | 2021-09-05 09:15 | DI.CT_ITS ---
Exam(s) CT CHEST WO EXAM: CT CHEST WO CLINICAL HISTORY: PULMONARY NODULE R91.1, ANNUAL IMAGING 3 MM RUL NODULE. TECHNIQUE: Multi planar reconstructions were performed. CONTRAST MATERIAL: None COMPARISON: CT CT CHEST WO from 07/30/2020 FINDINGS: CHEST: LUNGS: The previously described small 3 millimeter subpleural nodule in the right upper lobe again re tre unchanged. There are no new significant focal findings in either lung field and there are no pl eural effusions. MEDIASTINUM: There is no obvious hilar nor mediastinal adenopathy. Calcified nodule in the left thyro id lobe is again noted.No obvious axillary adenopathy CARDIAC: Heart size is normal. There is no pericardial effusion.Caliber of the thoracic aorta is wit hin normal limits. VISUALIZED UPPER ABDOMEN: OSSEOUS: No significant osseous lesions.No fractures. There is multilevel inter osseous calcification noted within the inter spinous ligament.. IMPRESSION: 1. Stable benign-appearing solitary right lung finding, again unchanged. 2. No new focal pulmonary findings nor pleural effusions nor intrathoracic adenopathy. 3. Calcified left thyroid lobe nodule noted. This can be further investigated with thyroid ultrasound examination. RADIATION DOSE DELIVERED: 980.99mGy.cm Total DLP DATA REPOSITORY: All CT scans at this facility are submitted to the National Radiology Data Registry (NRDR) Dose Index Registry (DIR) with the [employer] (ACR). RADIATION OPTIMIZATION: All CT scans at this facility use at least one of these dose optimization te chniques: automated exposure control; mA and/or kV adjustment per patient size (includes targeted exa ms where dose is matched to clinical indication); or iterative reconstruction.
== END ==
PROVIDERS: PCP Nurse Practitioner Family; Visit Provider Nurse Practitioner Family
DX: E04.1 Nontoxic single thyroid nodule (principal); R91.1 Solitary pulmonary nodule
CPT/HCPCS: 71250

== ENCOUNTER 2021-09-23 16:49 | Outpatient (REF) | payer MEDICAID, SELFPAY ==
[2021-09-23 15:31] LABS: ALT 16 U/L (16-63); AST 19 U/L (15-37); HDL Cholesterol 35 mg/dL (40-60); LDL CHOLESTEROL 57 mg/dL (<100); TSH (W/Ref FT4) 1.39 uIU/mL (0.36-3.74)
[2021-09-23 15:48] LABS: Creatine Kinase 42 U/L (39-308)
== END 2021-09-23 16:50 | disposition home or self-care (01) ==
LOC: NCHCN 16:49
PROVIDERS: PCP Nurse Practitioner Family; Visit Provider Nurse Practitioner Family
DX: R91.1 Solitary pulmonary nodule (principal); I48.91 Unspecified atrial fibrillation; E11.9 Type 2 diabetes mellitus without complications; E66.9 Obesity, unspecified
CPT/HCPCS: 82550; 83721; 83718; 84443; 84450; 84460

== ENCOUNTER 2021-11-04 17:08 | Outpatient (REF) | payer MEDICAID, SELFPAY ==
[2021-11-04 19:35] LABS: ALT 19 U/L (16-63); AST 15 U/L (15-37); Anion Gap 5.1 mmol/L (3-11); BUN 14 mg/dL (7-18); CO2 30.9 mmol/L (21.0-32.0); CREATININE 0.7 mg/dL (0.70-1.30); Calcium 8.9 mg/dL (8.5-10.1); Chloride 103 mmol/L (98-107); Glucose 114 mg/dL (74-106); HDL Cholesterol 38 mg/dL (40-60); LDL CHOLESTEROL 63 mg/dL (<100); Potassium 4.8 mmol/L (3.5-5.1); Sodium 139 mmol/L (136-145)
[2021-11-04 19:51] LABS: Creatine Kinase 51 U/L (39-308)
== END 2021-11-04 17:09 | disposition home or self-care (01) ==
LOC: NCHCN 17:08
PROVIDERS: PCP Nurse Practitioner Family; Visit Provider Nurse Practitioner Family
DX: E11.9 Type 2 diabetes mellitus without complications (principal); I48.91 Unspecified atrial fibrillation
CPT/HCPCS: 80048; 82550; 83721; 83718; 84450; 84460

== ENCOUNTER → 2021-12-04 02:31 | Outpatient (CLI) | payer MEDICAID, SELFPAY ==
--- NOTE | 2021-12-04 08:15 | DI.US_ITS ---
Exam(s) US THYROID EXAM: US THYROID CLINICAL HISTORY: Assess stability of thyroid nodules, E04.1. TECHNIQUE: Ultrasound thyroid performed using standard protocol. COMPARISON: US US THYROID from 08/29/2019 FINDINGS: ISTHMUS: 8 mm RIGHT LOBE: Size: 4.7 x 1.8 x 1.8 cm Echogenicity: Normal. Vascularity: Normal. Nodules: None. LEFT LOBE: Size: 5.1 x 1.6 x 2.1 cm Echogenicity: Normal. Vascularity: Normal. Nodules: There is a 1.4 cc by 1.3 AP by 1.1 transverse cm hypoechoic nodule in the upper pole of the left lobe of the thyroid gland. It is solid with smooth margins. No echogenic foci are seen. It co rresponds to a TIRADs level 5 nodule. There is a 2nd nodule in the inferior pole which measures 1.3 AP by 1.1 transverse by 1.3 craniocaudad. It is solid and hypoechoic with macrocalcifications. It c orresponds to a TIRADS level 5 nodule. OTHER FINDINGS: None. IMPRESSION: 1. Two left thyroid nodules. Because of their size and level biopsy is recommended. 2. Biopsy was not performed at this time. DATA REPOSITORY:
== END ==
PROVIDERS: PCP Nurse Practitioner Family; Visit Provider Otolaryngology
DX: E04.1 Nontoxic single thyroid nodule (principal)
CPT/HCPCS: 76536

== ENCOUNTER 2022-08-07 10:31 | Outpatient (CLI) | payer MEDICAID, SELFPAY ==
--- NOTE | 2022-08-07 10:30 | RT.EKG_ITS ---
APPROVED REPORT Exam: Resting ECG Reason for Exam: afib Patient Location: O HR:63 bpm ECG Measurements Heart Rate 63 AXIS OR [id number] P [id number] QRSd 95 QRS 2 QT 426 T 31 QTc 437 Conclusion Sinus rhythm early transition...QRS area>0 in V2 Left ventricular hypertrophy...multiple voltage criteria
== END 2022-08-07 10:32 | disposition home or self-care (01) ==
LOC: DI.CARD 10:32
PROVIDERS: PCP Nurse Practitioner Family; Visit Provider Internal Medicine Cardiovascular Disease
DX: I48.0 Paroxysmal atrial fibrillation (principal)
CPT/HCPCS: 93010

== ENCOUNTER → 2022-11-28 00:41 | Outpatient (CLI) | payer MEDICAID, SELFPAY ==
--- NOTE | 2022-11-28 08:15 | DI.US_ITS ---
Exam(s) US THYROID EXAM: US THYROID CLINICAL HISTORY: assess for change, THYROID NODULE, E04.1. TECHNIQUE: Ultrasound thyroid performed using standard protocol. COMPARISON: CT CT CHEST PE CTA from 02/04/2019 US US THYROID from 02/23/[address] CHEST WO from 08/05/2019 US US THYROID from 08/29/[address] CHEST WO from 09/05/2021 US US THYROID from 12/04/2021 FINDINGS: Exam is somewhat limited by patient body habitus. ISTHMUS: 7 mm RIGHT LOBE: Size: 4.8 x 2.8 x 2 cm Echogenicity: Normal. Vascularity: Normal. Nodules: None. LEFT LOBE: Size: 5.9 x 2.5 x 2.5 cm Echogenicity: Normal. Vascularity: Normal. Nodules: Nodule 1 upper pole is measured today at 1.7 x 1.4 x 1.4 cm. Solid hypoechoic smooth margins macrocalcifications. TR 5. Appearance unchanged from prior exams. Nodule 2 lower pole 1.4 x 1.1 x 1. 1 cm. Heavily peripherally calcified which creates shadowing making it difficult to visualize interna l echotexture. TR 5. No change from prior exams. OTHER FINDINGS: None. IMPRESSION: Stable appearance of left thyroid nodules. Nodule 1 is measured slightly larger when compared with th e prior exam. Nodules TR 5, FNA recommended. DATA REPOSITORY:
== END ==
PROVIDERS: PCP Nurse Practitioner Family; Visit Provider Otolaryngology
DX: E04.1 Nontoxic single thyroid nodule (principal)
CPT/HCPCS: 76536

== ENCOUNTER 2023-02-09 13:23 | Outpatient (REF) | payer MEDICAID, SELFPAY ==
[2023-02-09 15:08] LABS: HCT 44.9 % (40.0-50.0); HGB 14.8 g/dL (13.5-17.5); MCH 28.1 pg (27.0-33.0); MCV 85 fL (80-95); MPV 9.3 fL (8.0-11.0); Platelet Count 311 10^3/uL (130-400); RBC 5.26 10^6/uL (4.36-5.78); RDW 14.1 % (11.8-14.1); RDW-SD 43.9 fL; WBC 7.92 10^3/uL (4.4-10.8)
[2023-02-09 15:28] LABS: ALT 17 U/L (16-63); AST 16 U/L (15-37); Albumin 3.1 g/dL (3.4-5.0); Alkaline Phosphatase 80 U/L (46-116); Anion Gap 6.1 mmol/L (3-11); BUN 17 mg/dL (7-18); Bilirubin, Total 0.4 mg/dL (0.2-1.0); CO2 28.9 mmol/L (21.0-32.0); CREATININE 0.8 mg/dL (0.70-1.30); Calcium 9.5 mg/dL (8.5-10.1); Chloride 101 mmol/L (98-107); Estimated GFR 106.48 (mL/min/1.73m2); Glucose 150 mg/dL (74-106); HDL Cholesterol 44 mg/dL (40-60); LDL CHOLESTEROL 67 mg/dL (<100); Potassium 4.5 mmol/L (3.5-5.1); Sodium 136 mmol/L (136-145); Total Protein 7.9 g/dL (6.4-8.2)
[2023-02-09 15:40] LABS: Hemoglobin A1C 6.6 % (<5.7)
[2023-02-09 18:04] LABS: Creatine Kinase 45 U/L (39-308)
== END 2023-02-09 13:24 | disposition home or self-care (01) ==
LOC: NCHCN 13:23
PROVIDERS: PCP Nurse Practitioner Family; Visit Provider Nurse Practitioner Family
DX: E11.9 Type 2 diabetes mellitus without complications (principal); I48.91 Unspecified atrial fibrillation
CPT/HCPCS: 80053; 82550; 83721; 85027; 83036; 83718

== ENCOUNTER 2023-08-03 18:03 | Outpatient (REF) | payer MEDICAID, SELFPAY ==
[2023-08-03 19:32] LABS: FREE T4 0.82 ng/dL (0.76-1.46); TSH 1.44 uIU/Ml (0.36-3.74)
== END 2023-08-03 18:04 | disposition home or self-care (01) ==
LOC: NCHCN 18:03
PROVIDERS: PCP Nurse Practitioner Family; Visit Provider Nurse Practitioner Family
DX: E66.9 Obesity, unspecified (principal)
CPT/HCPCS: 84439; 84443

== ENCOUNTER 2023-12-02 00:38 | Outpatient (CLI) | payer MEDICAID, SELFPAY ==
--- NOTE | 2023-12-02 06:30 | DI.US_ITS ---
Exam(s) US THYROID EXAM: US THYROID CLINICAL HISTORY: f/u Thyroid nodules/calcifications,e04.1. TECHNIQUE: Ultrasound thyroid performed using standard protocol. COMPARISON: US US THYROID from 11/28/2022 FINDINGS: ISTHMUS: 5.3 mm RIGHT LOBE: Size: 4.7 x 1.8 x 1.6 cm Echogenicity: Normal. Vascularity: Normal. Nodules: None. LEFT LOBE: Size: 5.3 x 1.7 x 2.0 cm Echogenicity: Normal. Vascularity: Normal. Nodules: There is again seen a solid hypoechoic nodule in the medial aspect of the midpole of the lef t lobe measuring 1.6 x 1.4 x 1.4. This is show no significant change compared to the prior examinati on. It again is consistent with a TI rads level 4 nodule. Due to its size, biopsy should be conside red. There is also a 1.3 x 1.2 x 1.3 cm nodule just lateral which shows a macrocalcification. It is hypoechoic and solid. It is also consistent with a TI rads 4 level nodule. Due to its size, follow -up is recommended. OTHER FINDINGS: None. IMPRESSION: Stable left thyroid nodules. Please see the above discussion for complete details. DATA REPOSITORY:
== END 2023-12-02 00:58 ==
PROVIDERS: PCP Nurse Practitioner Family; Visit Provider Otolaryngology
DX: E04.1 Nontoxic single thyroid nodule (principal)
CPT/HCPCS: 76536

== ENCOUNTER 2024-01-27 15:50 | Outpatient (REF) | payer MEDICAID, SELFPAY ==
[2024-01-27 19:21] LABS: Anion Gap 8.3 mmol/L (3-11); BUN 18 mg/dL (7-18); CO2 27.7 mmol/L (21.0-32.0); CREATININE 0.8 mg/dL (0.70-1.30); Calcium 9.3 mg/dL (8.5-10.1); Chloride 106 mmol/L (98-107); Estimated GFR 105.82 (mL/min/1.73m2); Glucose 184 mg/dL (74-106); Potassium 4.4 mmol/L (3.5-5.1); Sodium 142 mmol/L (136-145)
== END 2024-01-27 15:51 | disposition home or self-care (01) ==
LOC: LBN 15:50
PROVIDERS: PCP Nurse Practitioner Family; Visit Provider Nurse Practitioner Family
DX: I10 Essential (primary) hypertension (principal)
CPT/HCPCS: 80048

== ENCOUNTER 2024-04-05 03:19 | Outpatient (CLI) | payer MEDICAID, SELFPAY ==
[2024-04-05 13:12] LABS: Calculated LDL 50 mg/dL (<100); Cholesterol 119 mg/dL (<200); HDL Cholesterol 47 mg/dL (40-60); Triglyceride 111 mg/dL (<150)
== END 2024-04-05 03:20 | disposition home or self-care (01) ==
LOC: LBO 03:20
PROVIDERS: PCP Nurse Practitioner Family; Visit Provider Nurse Practitioner Family
DX: E11.9 Type 2 diabetes mellitus without complications (principal)
CPT/HCPCS: 36415; 80061

== ENCOUNTER 2024-08-04 07:44 | Outpatient (CLI) | payer MEDICAID, SELFPAY ==
--- NOTE | 2024-08-04 07:30 | RT.EKG_ITS ---
APPROVED REPORT Exam: Resting ECG Reason for Exam: PAF Patient Location: O HR:79 bpm ECG Measurements Heart Rate 79 AXIS WV 149 P 50 QRSd 99 QRS 4 QT 388 T 35 QTc 445 Conclusion Sinus rhythm...normal P axis, V-rate 50- 99 Normal Electrocardiogram
== END 2024-08-04 07:45 | disposition home or self-care (01) ==
LOC: DI.CARD 07:45
PROVIDERS: PCP Nurse Practitioner Family; Visit Provider Internal Medicine Cardiovascular Disease
DX: I48.0 Paroxysmal atrial fibrillation (principal)
CPT/HCPCS: 93010